=== PATIENT | male | born 1955 | race Caucasian/White ===

== ENCOUNTER 2019-07-14 08:43 | Day surgery (SDC) | payer MEDICAID ==
[2019-07-06 10:56] LABS: CLARITY,URINE CLEAR (Clear); COLOR,URINE YELLOW (Yellow); GLUCOSE, URINE NEGATIVE (Neg); KETONES,URINE NEGATIVE (Neg); LEUKOCYTE ESTERASE ,URINE NEGATIVE (Neg); NITRITES, URINE NEGATIVE (Neg); OCCULT BLOOD,URINE NEGATIVE (Neg); PROTEIN,URINE NEGATIVE (Neg); UROBILINOGEN,URINE 0.2 E.U/dL (0.2-1.0)
[2019-07-06 10:57] LABS: UA COLLECTION TYPE CLN CATCH MIDSTREAM
[2019-07-06 11:01] LABS: BASOPHILS # (AUTO) 0.1 X10'3 (0-0.2); BASOPHILS % (AUTO) 1.2 % (0-1); EOSINOPHILS # (AUTO) 0.3 X10'3 (0-0.9); EOSINOPHILS % (AUTO) 4.1 % (0-6); HEMATOCRIT 39.9 % (42.0-52.0); LYMPHOCYTES # (AUTO) 1.3 X10'3 (1.1-4.8); LYMPHOCYTES % (AUTO) 20.5 % (21-51); MEAN CORPUSCULAR HEMOGLOBIN 35.9 PG (27.0-31.0); MEAN CORPUSCULAR HGB CONC 35.1 g/dL (33.0-36.5); MEAN CORPUSCULAR VOLUME 102.2 FL (78-98); MONOCYTES # (AUTO) 0.7 X10'3 (0-0.9); NEUTROPHILS # (AUTO) 4.1 X10'3 (1.8-7.7); NEUTROPHILS % (AUTO) 63.2 % (42-75); PLATELET COUNT 320 X10'3 (140-440); RED CELL DISTRIBUTION WIDTH 12.7 % (11.5-14.5); WHITE BLOOD COUNT 6.4 X10'3 (4.5-11.0)
[2019-07-06 11:07] LABS: ALBUMIN 4.2 G/DL (3.4-5.0); ANION GAP 7 (8-16); BLOOD UREA NITROGEN 11 MG/DL (7-18); BUN/CREATININE RATIO 10.1 (5.4-32.0); CALCIUM 9.6 MG/DL (8.5-10.1); CHLORIDE 95 MMOL/L (99-107); CREATININE 1.09 MG/DL (0.60-1.10); GLUCOSE 101 MG/DL (70-104); POTASSIUM 4.7 MMOL/L (3.5-5.1); SODIUM 131 MMOL/L (135-145); TOTAL CARBON DIOXIDE 28.6 MMOL/L (24-32); eGFR 69 ML/MIN
[2019-07-06 11:09] LABS: PARTIAL THROMBOPLASTIN TIME 27 SECONDS (22-32)
[2019-07-14] VITALS (8 sets, daily range): BP systolic 95–127; BP diastolic 67–80
[~2019-07-14] VITALS: Ht 175.3 cm; Wt 79.2 kg
[2019-07-14] MEDS ORDERED: cefazolin/dext.iso 2gm/100ml 100 ML IV ONE (09:00)
[2019-07-14] MEDS ORDERED: diphenhydrAMINE 25mg capsule PO PRN (09:00)
[2019-07-14] MEDS ORDERED: LORazepam 0.5 MG tablet PO PRN (09:00)
[2019-07-14] MEDS ORDERED: normal saline 1,000 ML IV SCH (09:00)
[2019-07-14] MEDS ORDERED: LISI40TA4 PO (09:25)
[2019-07-14] MEDS ORDERED: ASPI-611 PO (09:25)
[2019-07-14] MEDS ORDERED: POTA10TA19 PO (09:25)
[2019-07-14] MEDS ORDERED: METO50TA17 PO (09:25)
[2019-07-14] MEDS ORDERED: SPIR25TA5 PO (09:25)
[2019-07-14] MEDS ORDERED: FURO40TA4 PO (09:25)
[2019-07-14 10:08] LABS: ALBUMIN 3.9 G/DL (3.4-5.0); ANION GAP 7 (8-16); BLOOD UREA NITROGEN 13 MG/DL (7-18); BUN/CREATININE RATIO 10.9 (5.4-32.0); CALCIUM 9.3 MG/DL (8.5-10.1); CHLORIDE 95 MMOL/L (99-107); CREATININE 1.19 MG/DL (0.60-1.10); GLUCOSE 108 MG/DL (70-104); SODIUM 130 MMOL/L (135-145); TOTAL CARBON DIOXIDE 27.8 MMOL/L (24-32); eGFR 62 ML/MIN
[2019-07-14 10:10] LABS: POTASSIUM 4.4 MMOL/L (3.5-5.1)
[2019-07-14 10:11] LABS: PARTIAL THROMBOPLASTIN TIME 28 SECONDS (22-32)
[2019-07-14 10:15] LABS: EOSINOPHILS # (AUTO) 0.1 X10'3 (0-0.9); EOSINOPHILS % (AUTO) 3.3 % (0-6); HEMOGLOBIN 13.4 g/dl (14.0-17.9); LYMPHOCYTES # (AUTO) 0.9 X10'3 (1.1-4.8); LYMPHOCYTES % (AUTO) 20.6 % (21-51); MEAN CORPUSCULAR HEMOGLOBIN 35.7 PG (27.0-31.0); MEAN CORPUSCULAR HGB CONC 35.2 g/dL (33.0-36.5); MEAN CORPUSCULAR VOLUME 101.3 FL (78-98); MEAN PLATELET VOLUME 7.5 FL (7.4-10.4); MONOCYTES # (AUTO) 0.6 X10'3 (0-0.9); MONOCYTES % (AUTO) 13.1 % (2-12); NEUTROPHILS # (AUTO) 2.8 X10'3 (1.8-7.7); PLATELET COUNT 278 X10'3 (140-440); RED BLOOD COUNT 3.75 X10'6 (4.70-6.10); RED CELL DISTRIBUTION WIDTH 12.8 % (11.5-14.5); WHITE BLOOD COUNT 4.5 X10'3 (4.5-11.0)
[2019-07-14] MEDS ORDERED: LIDOcaine 1% (10mg/ml)w/preservative injection 20ml MDV ONE (12:03)
[2019-07-14] MEDS ORDERED: iohexol 350MG/ML 100ml bottle IV ONE (12:03)
[2019-07-14] MEDS ORDERED: ceFAZolin 1000mg inj ONE (12:03)
[2019-07-14] MEDS ORDERED: midazolam 2 mg/2 ml injection ONE ×2 (12:03→12:37)
[2019-07-14] MEDS ORDERED: fentaNYL/PF 50MCG/1 ML 2ML syringe ONE ×2 (12:03→12:47)
[2019-07-14] MEDS ORDERED: LIDOcaine 1% W/epiNEPHrine 1:100,000 20ml vial ONE ×2 (12:03→12:35)
[2019-07-14] MEDS ORDERED: OXAZEpam 15mg capsule PO PRN (14:35)
[2019-07-14] MEDS ORDERED: HYDROcodone/acetaminophen 5mg/325mg tablet PO PRN (14:35)
[2019-07-14] MEDS ORDERED: acetaminophen 325mg tablet PO PRN (14:35)
[2019-07-14] MEDS ORDERED: proCHLORperazine 10 MG/2 ml inj IV PRN (14:35)
[2019-07-14] MEDS ORDERED: HYDROcodone/acetaminophen 10/325mg tab PO PRN (14:35)
[2019-07-14] MEDS ORDERED: ondansetron/PF 4mg/2ml inj IV PRN (14:35)
== END 2019-07-14 16:05 | disposition home or self-care (01) ==
LOC: SSTAY O 08:43
PROVIDERS: ATTEND Internal Medicine Interventional Cardiology
DX: R94.39 Abnormal result of other cardiovascular function study (principal); I25.10 Atherosclerotic heart disease of native coronary artery without angina pectoris; I11.0 Hypertensive heart disease with heart failure; I50.9 Heart failure, unspecified; F17.210 Nicotine dependence, cigarettes, uncomplicated; Z79.01 Long term (current) use of anticoagulants; Z79.82 Long term (current) use of aspirin; Z79.899 Other long term (current) drug therapy; Z72.89 Other problems related to lifestyle; Z88.8 Allergy status to other drugs, medicaments and biological substances; I45.89 Other specified conduction disorders
CPT/HCPCS: 33249; 36415; 80048; 81003; 85025; 85610; 85730; 93005; 93458; 99152; 99153; C1721; C1760; C1769; C1895; J0690; J1644; J2001; J2250; J3010; J7030; Q0163; Q9967; A4565; A4620; A6258

== ENCOUNTER 2022-12-08 19:06 | Emergency (ER) | payer MEDICARE, MEDICAID ==
[~2022-12-08] VITALS: Ht 177.8 cm; Wt 77.3 kg
[~2022-12-08 19:06] MED LIST: ASPI-611 PO; FURO40TA4 PO; LISI40TA13 PO; METO50TA17 PO; POTA-192 PO; SPIR25TA5 PO
[2022-12-08 19:33] LABS: BASOPHILS % (AUTO) 0.6 % (0-1); EOSINOPHILS # (AUTO) 0.1 X10'3 (0-0.9); EOSINOPHILS % (AUTO) 1.1 % (0-6); HEMATOCRIT 38.1 % (42.0-52.0); HEMOGLOBIN 13.1 g/dl (14.0-17.9); LYMPHOCYTES # (AUTO) 0.6 X10'3 (1.1-4.8); MEAN CORPUSCULAR HEMOGLOBIN 33.9 PG (27.0-31.0); MEAN CORPUSCULAR HGB CONC 34.3 g/dL (33.0-36.5); MONOCYTES # (AUTO) 0.8 X10'3 (0-0.9); MONOCYTES % (AUTO) 12.3 % (2-12); NEUTROPHILS # (AUTO) 4.9 X10'3 (1.8-7.7); PLATELET COUNT 305 X10'3 (140-440); RED BLOOD COUNT 3.85 X10'6 (4.70-6.10); RED CELL DISTRIBUTION WIDTH 13.4 % (11.5-14.5); WHITE BLOOD COUNT 6.4 X10'3 (4.5-11.0)
[2022-12-08 19:42] LABS: ALANINE AMINOTRANSFERASE 29 U/L (12-78); ALBUMIN/GLOBULIN RATIO 1.3 (1.1-1.5); ALKALINE PHOSPHATASE 69 IU/L (46-116); ANION GAP 10 (8-16); ASPARTATE AMINO TRANSFERASE 41 U/L (10-37); BILIRUBIN,TOTAL 0.4 MG/DL (0.1-1.0); BLOOD UREA NITROGEN 15 MG/DL (7-18); CALCIUM 8.7 MG/DL (8.5-10.1); CHLORIDE 93 MMOL/L (99-107); CREATININE 1.36 MG/DL (0.60-1.10); GLUCOSE 98 MG/DL (70-104); POTASSIUM 4.1 MMOL/L (3.5-5.1); SODIUM 128 MMOL/L (135-145); TOTAL CARBON DIOXIDE 24.8 MMOL/L (24-32); eGFR 53 ML/MIN
[2022-12-08 23:50] VITALS: BP 152/93
== END 2022-12-09 00:07 | disposition home or self-care (01) ==
LOC: ER 19:07
DX: R07.9 Chest pain, unspecified (principal); E87.1 Hypo-osmolality and hyponatremia; I11.9 Hypertensive heart disease without heart failure; F41.9 Anxiety disorder, unspecified; F17.200 Nicotine dependence, unspecified, uncomplicated; Z88.2 Allergy status to sulfonamides; Z79.899 Other long term (current) drug therapy; Z79.82 Long term (current) use of aspirin
CPT/HCPCS: 36415; 80053; 83735; 83880; 84484; 85025; 93005; 99284

== ENCOUNTER 2023-01-26 13:14 | Emergency (ER) | payer MEDICARE, MEDICAID ==
[~2023-01-26] VITALS: Ht 177.8 cm; Wt 78.6 kg
[2023-01-26 13:40] LABS: BASOPHILS # (AUTO) 0.1 X10'3 (0-0.2); BASOPHILS % (AUTO) 0.9 % (0-1); EOSINOPHILS # (AUTO) 0.1 X10'3 (0-0.9); EOSINOPHILS % (AUTO) 1.2 % (0-6); HEMATOCRIT 39.7 % (42.0-52.0); HEMOGLOBIN 13.4 g/dl (14.0-17.9); LYMPHOCYTES # (AUTO) 1.4 X10'3 (1.1-4.8); LYMPHOCYTES % (AUTO) 16.6 % (21-51); MEAN CORPUSCULAR HEMOGLOBIN 32.8 PG (27.0-31.0); MEAN CORPUSCULAR HGB CONC 33.7 g/dL (33.0-36.5); MEAN CORPUSCULAR VOLUME 97.2 FL (78-98); MONOCYTES # (AUTO) 0.6 X10'3 (0-0.9); MONOCYTES % (AUTO) 7.5 % (2-12); NEUTROPHILS # (AUTO) 6.3 X10'3 (1.8-7.7); NEUTROPHILS % (AUTO) 73.8 % (42-75); PLATELET COUNT 315 X10'3 (140-440); RED BLOOD COUNT 4.09 X10'6 (4.70-6.10); RED CELL DISTRIBUTION WIDTH 13.2 % (11.5-14.5); WHITE BLOOD COUNT 8.5 X10'3 (4.5-11.0)
[2023-01-26 13:55] LABS: ALANINE AMINOTRANSFERASE 28 U/L (12-78); ALBUMIN/GLOBULIN RATIO 1.2 (1.1-1.5); ALKALINE PHOSPHATASE 70 IU/L (46-116); ANION GAP 8 (8-16); ASPARTATE AMINO TRANSFERASE 26 U/L (10-37); BILIRUBIN,TOTAL 0.4 MG/DL (0.1-1.0); BLOOD UREA NITROGEN 15 MG/DL (7-18); BUN/CREATININE RATIO 10.8 (10.0-20.0); CALCIUM 8.9 MG/DL (8.5-10.1); CHLORIDE 95 MMOL/L (99-107); CREATININE 1.39 MG/DL (0.60-1.10); GLUCOSE 104 MG/DL (70-104); POTASSIUM 4.1 MMOL/L (3.5-5.1); SODIUM 127 MMOL/L (135-145); TOTAL CARBON DIOXIDE 24.1 MMOL/L (24-32); TOTAL PROTEIN 7.3 G/DL (6.4-8.2); eGFR 51 ML/MIN
[2023-01-26] MEDS ORDERED: normal saline 1000ML IV soln IVB ONE (17:50)
[2023-01-26 19:01] VITALS: BP 155/86
== END 2023-01-26 19:03 | disposition home or self-care (01) ==
LOC: ER 13:14
DX: I11.0 Hypertensive heart disease with heart failure (principal); E87.1 Hypo-osmolality and hyponatremia; F41.9 Anxiety disorder, unspecified; Z88.2 Allergy status to sulfonamides; Z79.899 Other long term (current) drug therapy
CPT/HCPCS: 36415; 71045; 80053; 83880; 84484; 85025; 93005; 99285; J7030

== ENCOUNTER 2023-02-22 19:20 | Emergency (ER) | payer MEDICARE, MEDICAID ==
[~2023-02-22] VITALS: Ht 177.8 cm; Wt 77.3 kg
[2023-02-22 20:06] VITALS: BP 115/85; PULSE 73; O2SAT 97
[2023-02-22 20:42] LABS: BASOPHILS # (AUTO) 0.1 X10'3 (0-0.2); BASOPHILS % (AUTO) 1.2 % (0-1); EOSINOPHILS # (AUTO) 0.1 X10'3 (0-0.9); EOSINOPHILS % (AUTO) 1.6 % (0-6); HEMOGLOBIN 13.4 g/dl (14.0-17.9); LYMPHOCYTES # (AUTO) 1.9 X10'3 (1.1-4.8); LYMPHOCYTES % (AUTO) 24.8 % (21-51); MEAN CORPUSCULAR HEMOGLOBIN 33.2 PG (27.0-31.0); MEAN CORPUSCULAR HGB CONC 34.4 g/dL (33.0-36.5); MEAN CORPUSCULAR VOLUME 96.5 FL (78-98); MEAN PLATELET VOLUME 6.9 FL (7.4-10.4); MONOCYTES # (AUTO) 0.6 X10'3 (0-0.9); MONOCYTES % (AUTO) 8.7 % (2-12); NEUTROPHILS # (AUTO) 4.8 X10'3 (1.8-7.7); NEUTROPHILS % (AUTO) 63.7 % (42-75); PLATELET COUNT 276 X10'3 (140-440); RED BLOOD COUNT 4.04 X10'6 (4.70-6.10); RED CELL DISTRIBUTION WIDTH 13.6 % (11.5-14.5); WHITE BLOOD COUNT 7.5 X10'3 (4.5-11.0)
[2023-02-22 21:01] LABS: ALANINE AMINOTRANSFERASE 27 U/L (12-78); ALBUMIN/GLOBULIN RATIO 1.2 (1.1-1.5); ALKALINE PHOSPHATASE 62 IU/L (46-116); ANION GAP 8 (8-16); ASPARTATE AMINO TRANSFERASE 21 U/L (10-37); BILIRUBIN,TOTAL 0.3 MG/DL (0.1-1.0); BLOOD UREA NITROGEN 17 MG/DL (7-18); BUN/CREATININE RATIO 14.3 (10.0-20.0); CALCIUM 9.7 MG/DL (8.5-10.1); CHLORIDE 98 MMOL/L (99-107); CREATININE 1.19 MG/DL (0.60-1.10); GLUCOSE 100 MG/DL (70-104); POTASSIUM 4.4 MMOL/L (3.5-5.1); SODIUM 131 MMOL/L (135-145); TOTAL CARBON DIOXIDE 24.9 MMOL/L (24-32); TOTAL PROTEIN 7.3 G/DL (6.4-8.2); eGFR 61 ML/MIN
[2023-02-22] MEDS ORDERED: normal saline 1000ml 1,000 ML IV ONE (23:20)
[2023-02-23 00:37] VITALS: RESP 13
[2023-02-23 00:53] VITALS: TEMP 97.4
== END 2023-02-23 00:57 | disposition home or self-care (01) ==
LOC: ER 19:22
DX: T67.8XXA Other effects of heat and light, initial encounter (principal); R00.2 Palpitations; E87.1 Hypo-osmolality and hyponatremia; I11.0 Hypertensive heart disease with heart failure; I50.9 Heart failure, unspecified; Z88.2 Allergy status to sulfonamides; Z79.82 Long term (current) use of aspirin; Z79.899 Other long term (current) drug therapy; X58.XXXA Exposure to other specified factors, initial encounter; Y93.89 Activity, other specified; Y92.89 Other specified places as the place of occurrence of the external cause; Y99.8 Other external cause status
CPT/HCPCS: 36415; 71045; 80053; 83880; 84484; 85025; 93005; 96360; 99285; J7030

== ENCOUNTER 2023-03-01 07:33 | Inpatient (IN) | payer MEDICARE, MEDICAID ==
[~2023-03-01] VITALS: Ht 177.8 cm; Wt 78.2 kg
[2023-03-01] MEDS ORDERED: MAGNESIUM SULFATE 4 MEQ/ML (5gm/10ml) injection ONE (08:00)
[2023-03-01] MEDS ORDERED: heparin 10,000 units/1 ML INJ ONE (08:00)
[2023-03-01] MEDS ORDERED: mannitol 12.5gm/50mL VIAL IV ONE (08:00)
[2023-03-01] MEDS ORDERED: LIDOcaine 2% (20 mg/ml) 5ml cardiac syringe ONE (08:00)
[2023-03-01] MEDS ORDERED: calcium chloride 100 MG/1 ML inj IV ONE (08:00)
[2023-03-01] MEDS ORDERED: heparin 1,000 units/ml 10ml inj ONE (08:00)
[2023-03-01] MEDS ORDERED: methylPREDNISolone sod succ 1000mg vial ONE (08:00)
[2023-03-01] MEDS ORDERED: sodium bicarbonate (8.4%) 1 mEq/ml syringe ONE (08:00)
[2023-03-01] MEDS ORDERED: NORepinephrine 1 mg/ml inj IV ONE (08:00)
[2023-03-01] MEDS ORDERED: albumin (human) 25% 100 ML IV solution IV ONE (08:00)
[2023-03-01] MEDS ORDERED: aminocaproic acid 250 MG/1 ML inj. ONE (08:00)
[2023-03-01 08:24] LABS: ALANINE AMINOTRANSFERASE 26 U/L (12-78); ALBUMIN/GLOBULIN RATIO 1.2 (1.1-1.5); ALKALINE PHOSPHATASE 62 IU/L (46-116); ANION GAP 12 (8-16); ASPARTATE AMINO TRANSFERASE 25 U/L (10-37); BILIRUBIN,TOTAL 0.4 MG/DL (0.1-1.0); BLOOD UREA NITROGEN 17 MG/DL (7-18); BUN/CREATININE RATIO 12.9 (10.0-20.0); CHLORIDE 98 MMOL/L (99-107); CREATININE 1.32 MG/DL (0.60-1.10); GLUCOSE 174 MG/DL (70-104); POTASSIUM 4.4 MMOL/L (3.5-5.1); SODIUM 133 MMOL/L (135-145); TOTAL CARBON DIOXIDE 23.1 MMOL/L (24-32); TOTAL PROTEIN 7.4 G/DL (6.4-8.2); eCRCL 58 ML/MIN; eGFR 54 ML/MIN
[2023-03-01 08:28] LABS: PRO BRAIN NATRIURETIC PEPTIDE 1276 PG/ML (0-125)
[2023-03-01 08:45] LABS: BASOPHILS % (AUTO) 0.8 % (0-1); EOSINOPHILS # (AUTO) 0.1 X10'3 (0-0.9); EOSINOPHILS % (AUTO) 1.9 % (0-6); HEMATOCRIT 42.2 % (42.0-52.0); HEMOGLOBIN 14.2 g/dl (14.0-17.9); LYMPHOCYTES % (AUTO) 22.1 % (21-51); MEAN CORPUSCULAR HEMOGLOBIN 32.6 PG (27.0-31.0); MEAN CORPUSCULAR HGB CONC 33.7 g/dL (33.0-36.5); MEAN CORPUSCULAR VOLUME 96.8 FL (78-98); MEAN PLATELET VOLUME 7.4 FL (7.4-10.4); MONOCYTES # (AUTO) 0.5 X10'3 (0-0.9); MONOCYTES % (AUTO) 10.3 % (2-12); NEUTROPHILS % (AUTO) 64.9 % (42-75); PLATELET COUNT 289 X10'3 (140-440); RED BLOOD COUNT 4.36 X10'6 (4.70-6.10); RED CELL DISTRIBUTION WIDTH 13.7 % (11.5-14.5); WHITE BLOOD COUNT 4.6 X10'3 (4.5-11.0)
--- NOTE | 2023-03-01 09:04 | NUR ---
SPOKE WITH [employer] PRESIDENT WHO CONFIRMED THE PATIENT'S DEVICE DID INDEED GO OFF. DEVICE WAS SUCCESSFUL WITH CONVERTING VT TO SR AND THE DEVICE IS WORKING PROPERLY. RECOMMENDS FOLLOW UP WITH [employer] [facility] [facility] AND HE WILL FAX OVER THE RESULTS.
[2023-03-01] MEDS ORDERED: amiodarone 150mg/dext, iso-os 100 ML IV ONE (12:30)
[2023-03-01] MEDS ORDERED: amiodarone/D5 360MG/200ML BAG 200 ML IV SCH (12:30)
[2023-03-01] MEDS ORDERED: morphine 2 MG/ML inj. syringe IV PRN ×2 (13:15)
[2023-03-01] MEDS: normal saline 1000ml 1,000 ML IV SCH (13:15)
[2023-03-01] MEDS ORDERED: magnesium 2GM in 50ml NS 50 ML IV PRN (13:15)
[2023-03-01] MEDS ORDERED: ondansetron/PF 4mg/2ml inj IV PRN (13:15)
[2023-03-01] MEDS ORDERED: PERFLUTREN PROTEIN-A MICROSPHR (Optison) 0.22 MG/ML 3ML VIAL IV ONE (13:15)
[2023-03-01] MEDS ORDERED: potassium Cl 40MEQ/1/2NS 520ml 520 ML IV PRN (13:15)
[2023-03-01] MEDS ORDERED: magnesium Cl slow-release 64mg tablet PO PRN (13:15)
[2023-03-01] MEDS ORDERED: acetaminophen 325mg tablet PO PRN (13:15)
[2023-03-01] MEDS ORDERED: potassium Cl 20 mEq SR tablet PO PRN ×2 (13:15)
[2023-03-01] MEDS ORDERED: magnesium 4gm in 100ml NS 100 ML IV PRN (13:15)
[2023-03-01] MEDS ORDERED: ATOR20TA66 PO (15:10)
[2023-03-01] MEDS ORDERED: METO-384 PO (15:10)
[2023-03-01] MEDS ORDERED: EMPA10TA PO (15:10)
[2023-03-01] MEDS ORDERED: SILD100T70 PO (15:10)
[2023-03-01] MEDS ORDERED: OMEP40CA21 PO (15:10)
[2023-03-01] MEDS ORDERED: LISI20TA28 PO (15:10)
[2023-03-01] MEDS: K and/or MAG REPLACEMENT MC SCH (20:00)
--- NOTE | 2023-03-01 21:46 | NUR ---
Amiodarone drip completed. MD order to hold the subsequent doses.
[2023-03-02] VITALS (9 sets, daily range): BP systolic 134–169; BP diastolic 77–98; PULSE 65–74; RESP 11–17; TEMP 97.6–98.4; O2SAT 94–99
--- NOTE | 2023-03-02 06:33 | NUR ---
ASSUMED PT CARE. PT SHOWS NO S/S OF ACUTE DISTRESS. BED LOCKED AND LOW. CALL LIGHT IN REACH
--- NOTE | 2023-03-02 06:44 | NUR ---
Note jerad in ED - 03/02/23 at 0645 by LINDA ASSUMED PT CARE. PT SHOWS NO S/S OF ACUTE DISTRESS. BED LOCKED AND LOW. CALL LIGHT IN REACH
[2023-03-02 07:06] LABS: BASOPHILS % (AUTO) 0.5 % (0-1); EOSINOPHILS # (AUTO) 0.1 X10'3 (0-0.9); EOSINOPHILS % (AUTO) 1.5 % (0-6); HEMATOCRIT 43.3 % (42.0-52.0); HEMOGLOBIN 14.7 g/dl (14.0-17.9); LYMPHOCYTES # (AUTO) 1.2 X10'3 (1.1-4.8); LYMPHOCYTES % (AUTO) 17.9 % (21-51); MEAN CORPUSCULAR HEMOGLOBIN 32.9 PG (27.0-31.0); MEAN CORPUSCULAR HGB CONC 33.9 g/dL (33.0-36.5); MEAN CORPUSCULAR VOLUME 96.9 FL (78-98); MONOCYTES # (AUTO) 0.7 X10'3 (0-0.9); MONOCYTES % (AUTO) 9.9 % (2-12); NEUTROPHILS # (AUTO) 4.6 X10'3 (1.8-7.7); NEUTROPHILS % (AUTO) 70.2 % (42-75); PLATELET COUNT 284 X10'3 (140-440); RED BLOOD COUNT 4.47 X10'6 (4.70-6.10); RED CELL DISTRIBUTION WIDTH 13.9 % (11.5-14.5); WHITE BLOOD COUNT 6.6 X10'3 (4.5-11.0)
[2023-03-02] MEDS: K and/or MAG REPLACEMENT MC SCH ×2 (08:00→19:42)
[2023-03-02 08:02] LABS: ALBUMIN 3.9 G/DL (3.4-5.0); ANION GAP 8 (8-16); BLOOD UREA NITROGEN 15 MG/DL (7-18); BUN/CREATININE RATIO 12.3 (10.0-20.0); CALCIUM 8.9 MG/DL (8.5-10.1); CHLORIDE 99 MMOL/L (99-107); CREATININE 1.22 MG/DL (0.60-1.10); GLUCOSE 112 MG/DL (70-104); MAGNESIUM 2.5 MG/DL (1.5-2.4); POTASSIUM 4.7 MMOL/L (3.5-5.1); SODIUM 134 MMOL/L (135-145); TOTAL CARBON DIOXIDE 26.7 MMOL/L (24-32); eCRCL 62 ML/MIN; eGFR 60 ML/MIN
[2023-03-02] MEDS: EMPAGLIFLOZIN 10 MG TABLET PO SCH (08:16)
[2023-03-02] MEDS: atorvastatin 20mg tablet PO SCH (08:17)
[2023-03-02] MEDS: metoprolol succinate 25mg (24-HOUR) SR. Tablet PO SCH (08:17)
[2023-03-02] MEDS: aspirin 81mg, enteric-coated 1 TAB TABLET.DR PO SCH (08:18)
[2023-03-02] MEDS: amiodarone 200mg tablet PO SCH ×2 (11:19→19:42)
[2023-03-02] MEDS ORDERED: midazolam 1 mg/ML 2ml injection ONE (14:48)
[2023-03-02] MEDS ORDERED: LIDOcaine 1% (10mg/ml) 2ml vial ONE (14:48)
[2023-03-02] MEDS ORDERED: verapamil 2.5 mg/ml inj IV ONE (14:48)
[2023-03-02] MEDS ORDERED: nitroGLYCERIN-Tridil 50MG/D5W 250 ML IV ONE (14:48)
[2023-03-02] MEDS ORDERED: iohexol 350MG/ML 100ml bottle IV ONE (14:49)
[2023-03-02] MEDS ORDERED: heparin 1,000unit/ml 10ml vial 10 ML ONE (14:49)
[2023-03-02] MEDS ORDERED: fentaNYL/PF 50MCG/1 ML 2ML syringe ONE (14:49)
--- NOTE | 2023-03-02 19:25 | NUR ---
Problems reprioritized. Patient report given, questions answered & plan of care reviewed with MICHELL MILAN.
[2023-03-03] VITALS (15 sets, daily range): BP systolic 81–158; BP diastolic 45–91; PULSE 62–92; RESP 12–21; TEMP 97.8–98.1; O2SAT 93–98
[2023-03-03 06:11] LABS: ALBUMIN 3.7 G/DL (3.4-5.0); ANION GAP 7 (8-16); BLOOD UREA NITROGEN 22 MG/DL (7-18); BUN/CREATININE RATIO 18.3 (10.0-20.0); CALCIUM 9.6 MG/DL (8.5-10.1); CHLORIDE 98 MMOL/L (99-107); GLUCOSE 110 MG/DL (70-104); MAGNESIUM 2.3 MG/DL (1.5-2.4); POTASSIUM 4.9 MMOL/L (3.5-5.1); SODIUM 134 MMOL/L (135-145); TOTAL CARBON DIOXIDE 28.6 MMOL/L (24-32); eCRCL 63 ML/MIN; eGFR 61 ML/MIN
[2023-03-03 06:20] LABS: BASOPHILS % (AUTO) 0.7 % (0-1); EOSINOPHILS # (AUTO) 0.1 X10'3 (0-0.9); EOSINOPHILS % (AUTO) 2.1 % (0-6); HEMATOCRIT 42.3 % (42.0-52.0); HEMOGLOBIN 14.3 g/dl (14.0-17.9); LYMPHOCYTES # (AUTO) 1.7 X10'3 (1.1-4.8); LYMPHOCYTES % (AUTO) 23.8 % (21-51); MEAN CORPUSCULAR HGB CONC 33.9 g/dL (33.0-36.5); MEAN CORPUSCULAR VOLUME 97.2 FL (78-98); MEAN PLATELET VOLUME 7.2 FL (7.4-10.4); MONOCYTES # (AUTO) 0.7 X10'3 (0-0.9); MONOCYTES % (AUTO) 9.4 % (2-12); NEUTROPHILS # (AUTO) 4.5 X10'3 (1.8-7.7); PLATELET COUNT 271 X10'3 (140-440); RED BLOOD COUNT 4.35 X10'6 (4.70-6.10); RED CELL DISTRIBUTION WIDTH 13.9 % (11.5-14.5)
--- NOTE | 2023-03-03 06:41 | NUR ---
Problems reprioritized. Patient report given, questions answered & plan of care reviewed with Devi
[2023-03-03] MEDS: EMPAGLIFLOZIN 10 MG TABLET PO SCH (08:00)
[2023-03-03] MEDS: K and/or MAG REPLACEMENT MC SCH (08:00)
[2023-03-03] MEDS: amiodarone 200mg tablet PO SCH (09:38)
[2023-03-03] MEDS: aspirin 81mg, enteric-coated 1 TAB TABLET.DR PO SCH (09:39)
[2023-03-03] MEDS: atorvastatin 20mg tablet PO SCH (09:39)
[2023-03-03] MEDS: metoprolol succinate 25mg (24-HOUR) SR. Tablet PO SCH (09:42)
[2023-03-03] MEDS ORDERED: insulin glargine (Lantus) pen - multi-dose SQ PRN ×2 (09:45→18:30)
[2023-03-03] MEDS ORDERED: DEXTROSE 15 GM of carb/4 tabs (each vial/BOTTLE has 4 tablets) PO PRN ×2 (09:45)
[2023-03-03] MEDS ORDERED: MESSAGE TO PHARMACY PO ONE (09:45)
[2023-03-03] MEDS ORDERED: MESSAGE TO PHARMACY IJ ONE (09:45)
[2023-03-03] MEDS ORDERED: insulin Lispro (HumaLOG) vial - multi-dose SQ SCH (09:45)
[2023-03-03] MEDS ORDERED: dextrose 50%-water 50ml dispensing syringe IV PRN ×3 (09:45→18:30)
[2023-03-03] MEDS ORDERED: glucagon, human recombinant 1mg kit SUBCUT PRN (09:45)
[2023-03-03] MEDS ORDERED: Insulin Reg/NS 100units/100mL 100 ML IV SCH ×2 (09:45→18:30)
[2023-03-03] MEDS ORDERED: MALTODEXTRIN/FRUCTOSE 0.68 KCAL/ML LIQUID 296ML BOTTLE PO ONE (09:45)
[2023-03-03] MEDS ORDERED: MESSAGE TO NURSING PO ONE ×5 (09:45→10:00)
[2023-03-03] MEDS: normal saline 1000ml 1,000 ML IV SCH (09:55)
[2023-03-03] MEDS ORDERED: normal saline 1000ml 1,000 ML IV SCH (10:00)
[2023-03-03 11:06] LABS: APTT 27 SECONDS (22-32); PROTHROMBIN TIME 10.3 SECONDS (9.0-12.0)
[2023-03-03 11:40] LABS: ABG BASE EXCESS -0.1 mmol/L (-2.0-2.0); ABG HCO3 23.8 mmol/L (22.0-26.0); ABG OXYGEN SATURATION 95.9 % (94-97); ABG PCO2 (T) 36.1 mmHg (35.0-48.0); ABG PH (T) 7.436 (7.340-7.440); ABG PO2 (T) 76.5 mmHg (75.0-100.0); ALLEN'S TEST POSITIVE; FCOHb 0.4 % (0.0-3.9); FHHb 4.1 % (0.0-5.0); FLOW 0 L/min; FMetHb 0.2 % (0.0-1.5); FO2Hb 95.3 % (94-97); MODE RA; PATIENT TEMPERATURE 36.6; TOTAL HEMOGLOBIN 15.4 G/dl (14.0-17.9)
[2023-03-03] MEDS ORDERED: ceFAZolin 1000mg inj ONE (12:46)
[2023-03-03] MEDS ORDERED: BUPIVAcaine 0.5% inj/PF 30 ML ONE (12:46)
[2023-03-03] MEDS ORDERED: epiNEPHrine 1 mg/ml inj ONE (12:46)
[2023-03-03] MEDS ORDERED: vancomycin 1,000mg inj ONE (12:51)
[2023-03-03] MEDS ORDERED: ringers solution, lacted 1,000 ML IV ONE (13:25)
[2023-03-03] MEDS ORDERED: midazolam 1 mg/ML 2ml injection ONE (13:28)
[2023-03-03] MEDS ORDERED: SUfentanil 50mcg/ml 1ml amp IV ONE ×2 (13:28→14:20)
[2023-03-03] MEDS ORDERED: NORepinephrine 1 mg/ml inj IV ONE ×2 (13:51→14:26)
[2023-03-03] MEDS ORDERED: ondansetron 4mg rapidly disintigrating tab PO PRN (14:00)
--- NOTE | 2023-03-03 14:00 | NUR ---
Pt AOX4, VSS on RA. Pt denies CP, SOB at this time. Pt showered and prepped with CHG wipes prior to going to OR. Pt brushed teeth. Pt placed in clean gown and dirty bedding stripped from bed and new linens placed on bed. Pt in NAD. Girlfriend Susie at bedside. Report given to OR staff.
[2023-03-03] MEDS ORDERED: cefazolin 2gm/D5W 100mL 100 ML IV ONE (14:10)
[2023-03-03] MEDS ORDERED: VANCOMYCIN 1,500MG inj. 1,500 MG in normal saline 500ml IV soln 300 ML IV SCH (14:10)
[2023-03-03] MEDS ORDERED: vancomycin/NS 1 GM ADD-VANTAGE 250 ML IV ONE (14:15)
[2023-03-03] MEDS ORDERED: LIDOcaine 2% (20mg/ml) 5ml vial ONE (14:20)
[2023-03-03] MEDS ORDERED: rocuronium 10mg/ml inj IV ONE ×2 (14:20→14:26)
[2023-03-03] MEDS ORDERED: protamine sulf. 10mg/ml inj. IV ONE (14:26)
[2023-03-03] MEDS ORDERED: aminocaproic acid 250 MG/1 ML inj. ONE (14:26)
[2023-03-03] MEDS ORDERED: DOBUTamine/D5W 500mg/250ml premix IV ONE (14:26)
[2023-03-03] MEDS ORDERED: isoflurane 100ml inhalation liquid IH ONE (14:26)
[2023-03-03] MEDS ORDERED: nitroGLYCERIN in D5W 50mg/250ml (Tridil) infusion IV ONE (14:26)
[2023-03-03 15:21] LABS: ABG BASE EXCESS -4.7 mmol/L (-2.0-2.0); ABG OXYGEN SATURATION 99.9 % (94-97); ABG PCO2 31.6 mmHg (35.0-48.0); ABG PH 7.398 (7.340-7.440); ABG PO2 293.1 mmHg (75.0-100.0); CL (ABG) 97 mmol/L (99-107); FCOHb 0.7 % (0.0-3.9); FHHb 0.1 % (0.0-5.0); FMetHb 0.3 % (0.0-1.5); FO2Hb 98.9 % (94-97); GLUCOSE (ABG) 114 mg/dl (70-104); K (ABG) 3.9 mmol/L (3.5-5.1); TOTAL HEMOGLOBIN 13.1 G/dl (14.0-17.9)
[2023-03-03 15:45] LABS: ACT @ 1.70 U 267 SEC (193-297); ACT @ 2.84 U 371 SEC (260-420); BASELINE ACT 145 SEC (101-148); PATIENT WEIGHT 77.0k KG
[2023-03-03 16:49] LABS: ABG BASE EXCESS -2.4 mmol/L (-2.0-2.0); ABG HCO3 22.7 mmol/L (22.0-26.0); ABG OXYGEN SATURATION 99.4 % (94-97); ABG PCO2 40.6 mmHg (35.0-48.0); ABG PH 7.366 (7.340-7.440); ABG PO2 264.4 mmHg (75.0-100.0); CL (ABG) 97 mmol/L (99-107); FCOHb 0.3 % (0.0-3.9); FHHb 0.6 % (0.0-5.0); FMetHb 0.3 % (0.0-1.5); FO2Hb 98.8 % (94-97); GLUCOSE (ABG) 89 mg/dl (70-104); IONIZED CA (ABG) 0.96 mmol/L (1.10-1.30); K (ABG) 3.7 mmol/L (3.5-5.1)
[2023-03-03] MEDS ORDERED: ipratropium/albuterol 3ml nebule IH PRN (16:55)
[2023-03-03] MEDS ORDERED: etomidate 2mg/ml inj. ONE (17:00)
[2023-03-03 17:03] LABS: ABG BASE EXCESS VENOUS 1.6 mmol/L (-2.0 - 2.0); ABG HCO3 VENOUS 26.8 mmol/L (21.0-28.0); ABG OXYGEN SATURATION VENOUS 83.7 % (75 - 99 %); ABG PCO2 VENOUS 44.8 mmHg (41.0-54.0); ABG PH (VENOUS) 7.394 (7.310-7.450); ABG PO2 VENOUS 48.8 mmHg (25.0-35.0); CL (ABG) 98 mmol/L (99-107); FCOHb VENOUS 0.4 %; FHHb VENOUS 16.2 %; FMetHb VENOUS 0.3 % (0.0 - 0.5); FO2Hb VENOUS 83.1 %; GLUCOSE (ABG) 87 mg/dl (70-104); IONIZED CA (ABG) 1.07 mmol/L (1.10-1.30); TOTAL HEMOGLOBIN 9.9 G/dl (14.0-17.9)
[2023-03-03 17:33] LABS: ABG BASE EXCESS -0.3 mmol/L (-2.0-2.0); ABG HCO3 23.6 mmol/L (22.0-26.0); ABG OXYGEN SATURATION 97.7 % (94-97); ABG PCO2 35.7 mmHg (35.0-48.0); ABG PH 7.438 (7.340-7.440); ABG PO2 180.3 mmHg (75.0-100.0); CL (ABG) 98 mmol/L (99-107); FCOHb 0.4 % (0.0-3.9); FHHb 2.3 % (0.0-5.0); FMetHb 0.3 % (0.0-1.5); GLUCOSE (ABG) 94 mg/dl (70-104); IONIZED CA (ABG) 1.12 mmol/L (1.10-1.30); K (ABG) 4.2 mmol/L (3.5-5.1)
[2023-03-03] MEDS ORDERED: acetaminophen 1,000mg/100ml IV 100 ML IV ONE (17:38)
[2023-03-03 18:22] LABS: ABG BASE EXCESS VENOUS -0.1 mmol/L (-2.0 - 2.0); ABG HCO3 VENOUS 25.2 mmol/L (21.0-28.0); ABG OXYGEN SATURATION VENOUS 74.5 % (75 - 99 %); ABG PCO2 VENOUS 43.7 mmHg (41.0-54.0); ABG PH (VENOUS) 7.379 (7.310-7.450); ABG PO2 VENOUS 41.9 mmHg (25.0-35.0); CL (ABG) 98 mmol/L (99-107); FCOHb VENOUS 0.8 %; FHHb VENOUS 25.2 %; FMetHb VENOUS 0.3 % (0.0 - 0.5); FO2Hb VENOUS 73.7 %; GLUCOSE (ABG) 101 mg/dl (70-104); IONIZED CA (ABG) 1.27 mmol/L (1.10-1.30); K (ABG) 4.2 mmol/L (3.5-5.1); TOTAL HEMOGLOBIN 11.8 G/dl (14.0-17.9)
[2023-03-03 18:25] LABS: ACTIVATED CLOTTING TIME 121 SEC (101-148)
[2023-03-03] MEDS ORDERED: sodium chloride 0.45% 1,000 ML IV SCH (18:30)
[2023-03-03] MEDS ORDERED: bisacodyl 10mg suppository rectal RC PRN (18:30)
[2023-03-03] MEDS ORDERED: magnesium 4gm in 100ml NS 100 ML IV PRN (18:30)
[2023-03-03] MEDS ORDERED: potassium Cl 20 mEq SR tablet PO PRN (18:30)
[2023-03-03] MEDS ORDERED: sodium phosphate inj. 15 MMOL in dextrose 5%-water 250 ML IV PRN (18:30)
[2023-03-03] MEDS ORDERED: ondansetron/PF 4mg/2ml inj IV PRN (18:30)
[2023-03-03] MEDS ORDERED: Neutra Phos packet PO PRN (18:30)
[2023-03-03] MEDS ORDERED: magnesium hydroxide 30ml (MOM) UD suspension PO PRN (18:30)
[2023-03-03] MEDS ORDERED: metoclopramide 5 mg/ml inj IV PRN (18:30)
[2023-03-03] MEDS ORDERED: acetaminophen 325mg tablet PO PRN ×2 (18:30)
[2023-03-03] MEDS ORDERED: potassium Cl 40MEQ/270ML bag 250 ML IV PRN (18:30)
[2023-03-03] MEDS ORDERED: nitroGLYCERIN-Tridil 50MG/D5W 250 ML IV SCH ×2 (18:30→20:19)
[2023-03-03] MEDS ORDERED: sodium phosphate inj. 30 MMOL in dextrose 5%-water 250 ML IV PRN (18:30)
[2023-03-03] MEDS ORDERED: NORepinephrine 8mg/ 250ml NS 250 ML IV PRN (18:30)
[2023-03-03] MEDS ORDERED: potassium Cl 40MEQ/1/2NS 520ml 520 ML IV PRN (18:30)
[2023-03-03] MEDS ORDERED: magnesium 2GM in 50ml NS 50 ML IV PRN (18:30)
[2023-03-03] MEDS ORDERED: morphine 2 MG/ML inj. syringe IV PRN (18:30)
[2023-03-03] MEDS ORDERED: potassium CL 10mEq/100ml bag 100 ML IV PRN (18:30)
[2023-03-03] MEDS ORDERED: niCARDipine-NS 40mg/200ml IVPB 200 ML IV PRN (18:30)
[2023-03-03] MEDS ORDERED: mineral oil 133ml enema RC PRN (18:30)
[2023-03-03] MEDS ORDERED: potassium Cl 20mEq/100mL bag 100 ML IV PRN (18:30)
[2023-03-03] MEDS ORDERED: morphine 4 MG/ML inj SYRINge IV ONE ×2 (18:58→19:43)
[2023-03-03] MEDS ORDERED: albumin (Human) 5% 250ml 250 ML IV ONE ×2 (19:04)
[2023-03-03] MEDS: morphine 4 MG/ML inj SYRINge IV PRN (19:45)
[2023-03-03 19:47] LABS: BASOPHILS # (AUTO) 0.1 X10'3 (0-0.2); BASOPHILS % (AUTO) 0.3 % (0-1); EOSINOPHILS # (AUTO) 0.1 X10'3 (0-0.9); EOSINOPHILS % (AUTO) 0.5 % (0-6); HEMATOCRIT 35.4 % (42.0-52.0); LYMPHOCYTES # (AUTO) 1.8 X10'3 (1.1-4.8); MEAN CORPUSCULAR HEMOGLOBIN 33.3 PG (27.0-31.0); MEAN CORPUSCULAR HGB CONC 33.9 g/dL (33.0-36.5); MEAN CORPUSCULAR VOLUME 98.2 FL (78-98); MEAN PLATELET VOLUME 7.4 FL (7.4-10.4); MONOCYTES # (AUTO) 0.8 X10'3 (0-0.9); MONOCYTES % (AUTO) 5.1 % (2-12); NEUTROPHILS # (AUTO) 12.5 X10'3 (1.8-7.7); NEUTROPHILS % (AUTO) 82.1 % (42-75); PLATELET COUNT 201 X10'3 (140-440); WHITE BLOOD COUNT 15.2 X10'3 (4.5-11.0)
[2023-03-03 19:48] LABS: ABG BASE EXCESS -4.1 mmol/L (-2.0-2.0); ABG HCO3 21.3 mmol/L (22.0-26.0); ABG OXYGEN SATURATION 97.5 % (94-97); ABG PCO2 (T) 38.7 mmHg (35.0-48.0); ABG PH (T) 7.354 (7.340-7.440); FCOHb 0.3 % (0.0-3.9); FHHb 2.5 % (0.0-5.0); FMetHb 0.3 % (0.0-1.5); FO2Hb 96.9 % (94-97); MODE SIMV; PEEP 5 cm H2O; RESPIRATORY RATE 12 b/min; TIDAL VOLUME 500 mL; TOTAL HEMOGLOBIN 13.1 G/dl (14.0-17.9)
[2023-03-03 19:59] LABS: ALANINE AMINOTRANSFERASE 19 U/L (12-78); ALBUMIN 3.5 G/DL (3.4-5.0); ALBUMIN/GLOBULIN RATIO 1.8 (1.1-1.5); ALKALINE PHOSPHATASE 37 IU/L (46-116); ANION GAP 12 (8-16); APTT 26 SECONDS (22-32); BILIRUBIN,TOTAL 1.1 MG/DL (0.1-1.0); BLOOD UREA NITROGEN 14 MG/DL (7-18); BUN/CREATININE RATIO 14.4 (10.0-20.0); CALCIUM 8.7 MG/DL (8.5-10.1); CHLORIDE 101 MMOL/L (99-107); CREATININE 0.97 MG/DL (0.60-1.10); GLUCOSE 191 MG/DL (70-104); INR 1.1 INR; MAGNESIUM 2.6 MG/DL (1.5-2.4); PROTHROMBIN TIME 12.2 SECONDS (9.0-12.0); SODIUM 136 MMOL/L (135-145); TOTAL CARBON DIOXIDE 23.1 MMOL/L (24-32); TOTAL PROTEIN 5.5 G/DL (6.4-8.2); eCRCL 78 ML/MIN; eGFR 78 ML/MIN
[2023-03-03] MEDS ORDERED: mupirocin 2% ointment 22GM NS SCH ×2 (20:00)
[2023-03-03] MEDS: sennosides/docusate sodium tablet PO SCH (20:00)
[2023-03-03 20:08] LABS: ASPARTATE AMINO TRANSFERASE 31 U/L (10-37); PHOSPHORUS 3.5 MG/DL (2.3-4.5); POTASSIUM 3.9 MMOL/L (3.5-5.1)
[2023-03-03] MEDS: atorvastatin 10mg tablet PO SCH (21:00)
[2023-03-03] MEDS ORDERED: insulin glargine (Lantus) pen - multi-dose SQ SCH (21:00)
[2023-03-03] MEDS: vancomycin/NS 1 GM ADD-VANTAGE 250 ML IV SCH (22:13)
[2023-03-03] MEDS: albumin (Human) 5% 250ml 250 ML IV PRN ×2 (22:15→23:06)
--- NOTE | 2023-03-03 22:35 | NUR ---
Call in to Dr. Joy to report high CO/CI results. Orders noted
[2023-03-04] VITALS (29 sets, daily range): BP systolic 89–155; BP diastolic 41–91; PULSE 76–97; RESP 10–24; O2SAT 92–100
[2023-03-04] MEDS: ceFAZolin/D5W- 1GM premix 50 ML IV SCH ×3 (00:13→17:21)
[2023-03-04 02:32] LABS: BASOPHILS % (AUTO) 0.1 % (0-1); EOSINOPHILS % (AUTO) 0 % (0-6); HEMATOCRIT 28.3 % (42.0-52.0); HEMOGLOBIN 9.6 g/dl (14.0-17.9); LYMPHOCYTES # (AUTO) 0.2 X10'3 (1.1-4.8); LYMPHOCYTES % (AUTO) 1.9 % (21-51); MEAN CORPUSCULAR HEMOGLOBIN 33.1 PG (27.0-31.0); MEAN CORPUSCULAR HGB CONC 33.9 g/dL (33.0-36.5); MEAN CORPUSCULAR VOLUME 97.8 FL (78-98); MEAN PLATELET VOLUME 7.2 FL (7.4-10.4); MONOCYTES # (AUTO) 0.3 X10'3 (0-0.9); MONOCYTES % (AUTO) 3.5 % (2-12); NEUTROPHILS # (AUTO) 8.7 X10'3 (1.8-7.7); NEUTROPHILS % (AUTO) 94.5 % (42-75); PLATELET COUNT 157 X10'3 (140-440); RED BLOOD COUNT 2.89 X10'6 (4.70-6.10); RED CELL DISTRIBUTION WIDTH 13.8 % (11.5-14.5); WHITE BLOOD COUNT 9.2 X10'3 (4.5-11.0)
[2023-03-04 02:46] LABS: ALANINE AMINOTRANSFERASE 15 U/L (12-78); ALBUMIN 3.7 G/DL (3.4-5.0); ALBUMIN/GLOBULIN RATIO 2.2 (1.1-1.5); ALKALINE PHOSPHATASE 26 IU/L (46-116); ANION GAP 15 (8-16); ASPARTATE AMINO TRANSFERASE 20 U/L (10-37); BILIRUBIN,TOTAL 0.6 MG/DL (0.1-1.0); BLOOD UREA NITROGEN 14 MG/DL (7-18); BUN/CREATININE RATIO 11.1 (10.0-20.0); CALCIUM 8.2 MG/DL (8.5-10.1); CHLORIDE 105 MMOL/L (99-107); CREATININE 1.26 MG/DL (0.60-1.10); GLUCOSE 145 MG/DL (70-104); PHOSPHORUS 3.3 MG/DL (2.3-4.5); POTASSIUM 3.9 MMOL/L (3.5-5.1); SODIUM 140 MMOL/L (135-145); TOTAL CARBON DIOXIDE 20.4 MMOL/L (24-32); TOTAL PROTEIN 5.4 G/DL (6.4-8.2); eCRCL 60 ML/MIN; eGFR 57 ML/MIN
[2023-03-04 03:27] LABS: ABG BASE EXCESS -1.7 mmol/L (-2.0-2.0); ABG HCO3 22.9 mmol/L (22.0-26.0); ABG PCO2 (T) 38.2 mmHg (35.0-48.0); ABG PH (T) 7.395 (7.340-7.440); FCOHb 0.3 % (0.0-3.9); FMetHb 0.3 % (0.0-1.5); FO2Hb 95.4 % (94-97); MODE spont; PEEP 5 cm H2O; TOTAL HEMOGLOBIN 10.4 G/dl (14.0-17.9)
[2023-03-04] MEDS: albumin (Human) 5% 250ml 250 ML IV PRN (04:28)
[2023-03-04] MEDS ORDERED: albumin (Human) 5% 250ml 250 ML IV ONE (05:20)
[2023-03-04] MEDS: morphine 4 MG/ML inj SYRINge IV PRN (05:30)
[2023-03-04] MEDS ORDERED: LORazepam 2 mg/ml vial IV ONE (06:00)
[2023-03-04] MEDS ORDERED: famotidine 20mg tablet PO ONE (06:00)
--- NOTE | 2023-03-04 06:30 | NUR ---
Patient in room CICU 2013. I have received report from Julia GALARZA and had the opportunity to ask questions and assume patient care.
--- NOTE | 2023-03-04 07:30 | NUR ---
MD Visit Dr Joy to see pt. BP remains labile and MD aware. MD said to remove art line as able.
[2023-03-04] MEDS: vancomycin/NS 1 GM ADD-VANTAGE 250 ML IV SCH ×2 (07:46→21:08)
[2023-03-04] MEDS: sennosides/docusate sodium tablet PO SCH ×2 (07:47→21:07)
[2023-03-04] MEDS: metoprolol tartrate 12.5mg (1/2 tablet) PO SCH ×2 (07:47→21:07)
[2023-03-04] MEDS: aspirin 81mg tab.chew PO SCH (07:47)
[2023-03-04] MEDS: mupirocin 2% nasal ointment 1gm UD NS SCH ×2 (07:47→21:07)
[2023-03-04] MEDS ORDERED: Insulin Reg/NS 100units/100mL 100 ML IV SCH (09:45)
[2023-03-04] MEDS: HYDROcodone/acetaminophen 10/325mg tab PO PRN ×2 (10:35→17:21)
--- NOTE | 2023-03-04 11:07 | NUR ---
Nutrition consult: Per EMR pt extubated early this morning s/p CABG x 4. Pt would benefit from post CABG nutrition therapy education as appropriate. Pending documentation of PO intake post-op however per EMR pt with 100% PO intake on heart healthy diet prior to OR. Will continue to follow. Addendum: 03/04/23 at [address] Amended: Links added.
--- NOTE | 2023-03-04 12:00 | NUR ---
Pacer interrogation: Pts AICD was interrogated by Bay murray. See his report.
[2023-03-04] MEDS ORDERED: dextrose 50%-water 50ml dispensing syringe IV PRN ×2 (15:00)
[2023-03-04] MEDS ORDERED: insulin Lispro (HumaLOG) vial - multi-dose SQ SCH (15:00)
[2023-03-04] MEDS ORDERED: glucagon, human recombinant 1mg kit SUBCUT PRN (15:00)
[2023-03-04] MEDS ORDERED: DEXTROSE 15 GM of carb/4 tabs (each vial/BOTTLE has 4 tablets) PO PRN ×2 (15:00)
--- NOTE | 2023-03-04 16:30 | NUR ---
Shift note: Out of Bed Pt was out of bed with PT at about 1300 until about 1615. Also attempted commode for BM w/out results. Then back to bed with min assist x 1 RN. Pt denied dizziness or pain with standing or moving. Pt had typical chest tube dump with standing initially. Still c/o pain at left chest/incision.
--- NOTE | 2023-03-04 17:39 | NUR ---
fam to see pt again after work. Pt doing well.
--- NOTE | 2023-03-04 18:25 | NUR ---
Problems reprioritized. Patient report given, questions answered & plan of care reviewed with Julia GALARZA.
--- NOTE | 2023-03-04 21:00 | NUR ---
glucometer reading 180. no humalog per nighttime replacement protocol. No lantus at this time as it was DC'd when ins. drip was DC'd
[2023-03-04] MEDS: atorvastatin 10mg tablet PO SCH (21:07)
[2023-03-05] VITALS (21 sets, daily range): BP systolic 114–150; BP diastolic 72–95; PULSE 73–110; RESP 10–20; TEMP 97.2–97.3; O2SAT 89–98
[2023-03-05] MEDS: ceFAZolin/D5W- 1GM premix 50 ML IV SCH ×2 (00:21→08:27)
[2023-03-05] MEDS: HYDROcodone/acetaminophen 10/325mg tab PO PRN ×2 (05:31→09:37)
--- NOTE | 2023-03-05 06:46 | NUR ---
Patient in room CICU 2013. I have received report from ninfa GALARZA and had the opportunity to ask questions and assume patient care.
[2023-03-05] MEDS ORDERED: furosemide 40mg/4ml inj IV ONE (07:10)
[2023-03-05 07:48] LABS: BASOPHILS % (AUTO) 0.1 % (0-1); EOSINOPHILS % (AUTO) 0 % (0-6); HEMATOCRIT 26.6 % (42.0-52.0); HEMOGLOBIN 8.9 g/dl (14.0-17.9); LYMPHOCYTES # (AUTO) 0.8 X10'3 (1.1-4.8); LYMPHOCYTES % (AUTO) 6.9 % (21-51); MEAN CORPUSCULAR HEMOGLOBIN 32.6 PG (27.0-31.0); MEAN CORPUSCULAR HGB CONC 33.4 g/dL (33.0-36.5); MEAN CORPUSCULAR VOLUME 97.6 FL (78-98); MEAN PLATELET VOLUME 7.7 FL (7.4-10.4); MONOCYTES # (AUTO) 0.9 X10'3 (0-0.9); MONOCYTES % (AUTO) 7.2 % (2-12); NEUTROPHILS # (AUTO) 10.4 X10'3 (1.8-7.7); NEUTROPHILS % (AUTO) 85.8 % (42-75); PLATELET COUNT 153 X10'3 (140-440); RED BLOOD COUNT 2.72 X10'6 (4.70-6.10); RED CELL DISTRIBUTION WIDTH 14.1 % (11.5-14.5); WHITE BLOOD COUNT 12.1 X10'3 (4.5-11.0)
[2023-03-05] MEDS ORDERED: potassium Cl 20 mEq SR tablet PO PRN ×2 (08:00)
[2023-03-05] MEDS ORDERED: potassium Cl 20mEq/100mL bag 100 ML IV PRN (08:00)
[2023-03-05] MEDS ORDERED: potassium Cl 40MEQ/270ML bag 250 ML IV PRN (08:00)
[2023-03-05] MEDS ORDERED: potassium Cl 40MEQ/1/2NS 520ml 520 ML IV PRN (08:00)
[2023-03-05] MEDS ORDERED: magnesium 2GM in 50ml NS 50 ML IV PRN (08:00)
[2023-03-05] MEDS ORDERED: potassium CL 10mEq/100ml bag 100 ML IV PRN (08:00)
[2023-03-05] MEDS ORDERED: magnesium 4gm in 100ml NS 100 ML IV PRN (08:00)
[2023-03-05 08:07] LABS: ALBUMIN 3.7 G/DL (3.4-5.0); ANION GAP 8 (8-16); BLOOD UREA NITROGEN 18 MG/DL (7-18); BUN/CREATININE RATIO 18.9 (10.0-20.0); CALCIUM 8.7 MG/DL (8.5-10.1); CHLORIDE 102 MMOL/L (99-107); CHOL/HDL RATIO 1.9 (0.00-4.99); CHOLESTEROL 87 MG/DL (0-200); CREATININE 0.95 MG/DL (0.60-1.10); GLUCOSE 139 MG/DL (70-104); HDL CHOLESTEROL 45 MG/DL (35-60); LDL CHOLESTEROL 28 MG/DL (50-100); MAGNESIUM 2.2 MG/DL (1.5-2.4); PHOSPHORUS 3.5 MG/DL (2.3-4.5); POTASSIUM 4.6 MMOL/L (3.5-5.1); SODIUM 138 MMOL/L (135-145); TOTAL CARBON DIOXIDE 27.8 MMOL/L (24-32); TRIGLYCERIDES 44 MG/DL (20-135); eCRCL 80 ML/MIN; eGFR 80 ML/MIN
[2023-03-05] MEDS ORDERED: potassium Cl 40MEQ/270ML bag 270 ML IV PRN (08:07)
[2023-03-05] MEDS ORDERED: metoprolol tartrate 12.5mg (1/2 tablet) PO ONE (08:20)
[2023-03-05] MEDS: magnesium Cl slow-release 64mg tablet PO SCH ×2 (08:27→20:14)
[2023-03-05] MEDS: sennosides/docusate sodium tablet PO SCH ×2 (08:27→20:13)
[2023-03-05] MEDS: aspirin 81mg tab.chew PO SCH (08:28)
[2023-03-05] MEDS: pantoprazole 40mg Tablet.DR PO SCH (08:28)
[2023-03-05] MEDS: metoprolol tartrate 12.5mg (1/2 tablet) PO SCH (08:30)
--- NOTE | 2023-03-05 14:12 | NUR ---
Nutrition consult: Pt admit for ventricular fibrillation resulting in AICD defibrillation. Currently POD # 2 s/p CABG x 4. Pt seen at bedside for written and verbal post CABG nutrition therapy education. Pt verbalized understanding and denied questions at this time. Pt endorses a good appetite which is evident with documented average 94% PO intake since admit. Pt states he's getting full from meals though does agree to a Michael shake BID to assist with wound healing, to be sent pending physician approval in EMR. Pt denies food allergies, difficulty feeding self with incision site, or difficulty chewing/swallowing. LBM 8/9 per EMR. Pt receiving routine bowel care and has additional PRN bowel care available. Pt provided with RD contact information and encouraged to reach out if needed. Will continue to follow. Recommendations: 1) Continue NCS diet 2) Jayess Michael shake BIDLD to assist with wound healing, pending physician approval in EMR 3) Routine bowel care 4) Scaled weight this admit; subsequent weekly scaled weights Addendum: 03/05/23 at [address] Amended: Links added.
--- NOTE | 2023-03-05 14:40 | NUR ---
glass catheter dcd at this time, patient tolerated well.Urinal at bedside.
--- NOTE | 2023-03-05 17:15 | NUR ---
Problems reprioritized. Patient report given, questions answered & plan of care reviewed with Gia GALARZA. Pt is good spirits. at side, Pt orientated to room. Call light in reach.
--- NOTE | 2023-03-05 18:30 | NUR ---
Problems reprioritized. Patient report given, questions answered & plan of care reviewed with Fely HASSAN. Pt up in chair eating dinner, Call light in reach. Addendum: 03/05/23 at 1831 by Barbra Munroe RN Amended: Links added.
--- NOTE | 2023-03-05 20:00 | NUR ---
tiller man documentation: I have reviewed and agree with all interventions, assessments performed and documented by Fely Malone LVN .
--- NOTE | 2023-03-05 20:10 | NUR ---
VEHICLE MONITOR TECHNICIAN documentation: I have reviewed and agree with all interventions, assessments performed and documented by FAISAL BANKS LVN.
[2023-03-05] MEDS: potassium Cl 20 mEq SR tablet PO SCH (20:14)
[2023-03-05] MEDS: metoprolol tartrate 25mg tablet PO SCH (20:18)
[2023-03-05] MEDS: furosemide 40 MG/4 ML oral solution UD cup PO SCH (20:21)
[2023-03-05] MEDS: atorvastatin 10mg tablet PO SCH (22:22)
[2023-03-06] VITALS (11 sets, daily range): BP systolic 98–144; BP diastolic 54–87; PULSE 65–97; RESP 14–18; TEMP 97.8–98.5; O2SAT 95–98
[2023-03-06] MEDS ORDERED: amiodarone 150mg/dext, iso-os 100 ML IV ONE (02:05)
[2023-03-06] MEDS: amiodarone/D5 360MG/200ML BAG 200 ML IV SCH ×2 (03:08→09:11)
--- NOTE | 2023-03-06 06:12 | NUR ---
Patient in room PCU 3011. I have received report from Fely HASSAN and had the opportunity to ask questions and assume patient care.Pt remains in Afib. HR 97. Ammio Gtt at 1mg/hr. Pt sleeping, call light in reach. Addendum: 03/06/23 at 0618 by Barbra Munroe RN Amended: Links added.
[2023-03-06 06:32] LABS: BASOPHILS % (AUTO) 0.1 % (0-1); EOSINOPHILS % (AUTO) 0.1 % (0-6); HEMATOCRIT 30.2 % (42.0-52.0); LYMPHOCYTES # (AUTO) 1.5 X10'3 (1.1-4.8); LYMPHOCYTES % (AUTO) 12.6 % (21-51); MEAN CORPUSCULAR HEMOGLOBIN 32.2 PG (27.0-31.0); MEAN CORPUSCULAR VOLUME 97.5 FL (78-98); MEAN PLATELET VOLUME 8.1 FL (7.4-10.4); NEUTROPHILS # (AUTO) 9.5 X10'3 (1.8-7.7); NEUTROPHILS % (AUTO) 79.2 % (42-75); PLATELET COUNT 179 X10'3 (140-440); RED BLOOD COUNT 3.09 X10'6 (4.70-6.10); RED CELL DISTRIBUTION WIDTH 14.1 % (11.5-14.5)
[2023-03-06 06:37] LABS: ALBUMIN 3.6 G/DL (3.4-5.0); ANION GAP 7 (8-16); BLOOD UREA NITROGEN 21 MG/DL (7-18); BUN/CREATININE RATIO 22.6 (10.0-20.0); CALCIUM 8.9 MG/DL (8.5-10.1); CHLORIDE 98 MMOL/L (99-107); CREATININE 0.93 MG/DL (0.60-1.10); GLUCOSE 120 MG/DL (70-104); POTASSIUM 3.9 MMOL/L (3.5-5.1); SODIUM 135 MMOL/L (135-145); TOTAL CARBON DIOXIDE 29.6 MMOL/L (24-32); eCRCL 82 ML/MIN; eGFR 82 ML/MIN
[2023-03-06] MEDS ORDERED: magnesium 2GM in 50ml NS 50 ML IV ONE (07:55)
[2023-03-06] MEDS: aspirin 81mg tab.chew PO SCH (08:06)
[2023-03-06] MEDS: pantoprazole 40mg Tablet.DR PO SCH (08:08)
[2023-03-06] MEDS: magnesium Cl slow-release 64mg tablet PO SCH ×2 (08:08→21:06)
[2023-03-06] MEDS: metoprolol tartrate 25mg tablet PO SCH (08:08)
[2023-03-06] MEDS: potassium Cl 20 mEq SR tablet PO SCH ×2 (08:09→21:08)
[2023-03-06] MEDS: sennosides/docusate sodium tablet PO SCH ×2 (08:09→20:00)
[2023-03-06] MEDS: furosemide 40 MG/4 ML oral solution UD cup PO SCH ×2 (08:12→21:08)
[2023-03-06] MEDS ORDERED: potassium CL 10mEq/100ml bag 100 ML IV SCH (08:20)
--- NOTE | 2023-03-06 08:30 | NUR ---
[id number] Dr Joy contacted regarding Pt heart Rhythm afib, AICD pacer spikes and pt statement that he was going to , He asked that i notify Filiberto LOUIS. Oscar LOUIS notified, new orders received. Filiberto requested I notify Dr Hodge. Dr Hodge informed, New orders received.
[2023-03-06] MEDS ORDERED: oxyCODONE/APAP 5-325mg tablet PO PRN (08:40)
[2023-03-06] MEDS: HYDROcodone/acetaminophen 10/325mg tab PO PRN ×2 (08:58→17:41)
[2023-03-06] MEDS: sotalol HCl 40mg (1/2 tablet) PO SCH ×2 (10:40→21:07)
--- NOTE | 2023-03-06 18:20 | NUR ---
Problems reprioritized. Patient report given, questions answered & plan of care reviewed with Fely HASSAN. Pt eating dinner, No distress, Call light in reach. Pt heart in SR. Addendum: 03/06/23 at 1821 by Barbra Munroe RN Amended: Links added.
[2023-03-06] MEDS: enoxaparin 40mg/0.4ml syringe SUBCUT SCH (21:06)
[2023-03-06] MEDS: atorvastatin 10mg tablet PO SCH (21:08)
[2023-03-07] VITALS (9 sets, daily range): BP systolic 114–136; BP diastolic 71–87; PULSE 77–94; RESP 15–21; TEMP 97.5–98.5; O2SAT 95–99
--- NOTE | 2023-03-07 06:58 | NUR ---
Patient in room PCU 3011. I have received report from Fely HASSAN and had the opportunity to ask questions and assume patient care.
--- NOTE | 2023-03-07 07:17 | NUR ---
This RN has reviewed and agrees w/the AUTOMOTIVE GLASS TECHNICIAN's physical assessment of this patient.
[2023-03-07] MEDS: pantoprazole 40mg Tablet.DR PO SCH (07:52)
[2023-03-07] MEDS: magnesium Cl slow-release 64mg tablet PO SCH ×2 (07:54→19:38)
[2023-03-07] MEDS: sotalol HCl 40mg (1/2 tablet) PO SCH (07:54)
[2023-03-07] MEDS: aspirin 81mg tab.chew PO SCH (07:54)
[2023-03-07] MEDS: potassium Cl 20 mEq SR tablet PO SCH ×2 (07:54→19:38)
[2023-03-07] MEDS: enoxaparin 40mg/0.4ml syringe SUBCUT SCH ×2 (07:55→19:43)
[2023-03-07] MEDS: furosemide 40 MG/4 ML oral solution UD cup PO SCH ×2 (07:59→19:42)
[2023-03-07] MEDS: sennosides/docusate sodium tablet PO SCH ×2 (08:00→19:39)
[2023-03-07 08:04] LABS: BASOPHILS % (AUTO) 0.2 % (0-1); EOSINOPHILS # (AUTO) 0.1 X10'3 (0-0.9); EOSINOPHILS % (AUTO) 1.4 % (0-6); HEMATOCRIT 30.1 % (42.0-52.0); HEMOGLOBIN 10.2 g/dl (14.0-17.9); LYMPHOCYTES # (AUTO) 1.3 X10'3 (1.1-4.8); LYMPHOCYTES % (AUTO) 14.4 % (21-51); MEAN CORPUSCULAR VOLUME 97.1 FL (78-98); MEAN PLATELET VOLUME 7.7 FL (7.4-10.4); MONOCYTES # (AUTO) 0.8 X10'3 (0-0.9); NEUTROPHILS # (AUTO) 6.7 X10'3 (1.8-7.7); PLATELET COUNT 214 X10'3 (140-440); WHITE BLOOD COUNT 8.9 X10'3 (4.5-11.0)
[2023-03-07] MEDS: HYDROcodone/acetaminophen 10/325mg tab PO PRN ×2 (08:11→19:40)
[2023-03-07 09:07] LABS: ANION GAP 9 (8-16); BLOOD UREA NITROGEN 18 MG/DL (7-18); BUN/CREATININE RATIO 22.2 (10.0-20.0); CHLORIDE 99 MMOL/L (99-107); CREATININE 0.81 MG/DL (0.60-1.10); GLUCOSE 105 MG/DL (70-104); POTASSIUM 3.9 MMOL/L (3.5-5.1); SODIUM 135 MMOL/L (135-145); TOTAL CARBON DIOXIDE 26.9 MMOL/L (24-32)
[2023-03-07 09:08] LABS: ALBUMIN 3.4 G/DL (3.4-5.0); CALCIUM 8.8 MG/DL (8.5-10.1); eCRCL 94 ML/MIN; eGFR > 90 ML/MIN
[2023-03-07] MEDS: JUVEN Shake w/Arg/Glut/Ca2+Bmb (Juven 19.3gm) pkt 240ml PO SCH ×2 (12:30→18:09)
--- NOTE | 2023-03-07 18:42 | NUR ---
Problems reprioritized. Patient report given, questions answered & plan of care reviewed with Catian GALARZA.
[2023-03-07] MEDS: sotalol 80mg tablet PO SCH (19:39)
[2023-03-07] MEDS: atorvastatin 10mg tablet PO SCH (21:22)
[2023-03-08] VITALS (10 sets, daily range): BP systolic 89–124; BP diastolic 54–79; PULSE 78–104; RESP 15–20; TEMP 97.7–98.9; O2SAT 93–99
[2023-03-08] MEDS: HYDROcodone/acetaminophen 10/325mg tab PO PRN ×2 (05:42→17:30)
--- NOTE | 2023-03-08 06:15 | NUR ---
Problems reprioritized. Patient report given, questions answered & plan of care reviewed with Ricky
--- NOTE | 2023-03-08 06:16 | NUR ---
Patient in room PCU 3011. I have received report from Catina GALARZA and had the opportunity to ask questions and assume patient care.
[2023-03-08 06:23] LABS: BASOPHILS % (AUTO) 0.3 % (0-1); EOSINOPHILS # (AUTO) 0.2 X10'3 (0-0.9); EOSINOPHILS % (AUTO) 2.2 % (0-6); HEMATOCRIT 30.7 % (42.0-52.0); HEMOGLOBIN 10.5 g/dl (14.0-17.9); LYMPHOCYTES # (AUTO) 1.5 X10'3 (1.1-4.8); LYMPHOCYTES % (AUTO) 20.6 % (21-51); MEAN CORPUSCULAR HGB CONC 34.3 g/dL (33.0-36.5); MEAN CORPUSCULAR VOLUME 96.1 FL (78-98); MEAN PLATELET VOLUME 7.5 FL (7.4-10.4); MONOCYTES # (AUTO) 0.7 X10'3 (0-0.9); MONOCYTES % (AUTO) 9.7 % (2-12); NEUTROPHILS # (AUTO) 4.9 X10'3 (1.8-7.7); NEUTROPHILS % (AUTO) 67.2 % (42-75); PLATELET COUNT 273 X10'3 (140-440); RED BLOOD COUNT 3.19 X10'6 (4.70-6.10); RED CELL DISTRIBUTION WIDTH 13.6 % (11.5-14.5); WHITE BLOOD COUNT 7.3 X10'3 (4.5-11.0)
[2023-03-08 06:37] LABS: ALBUMIN 3.2 G/DL (3.4-5.0); ANION GAP 7 (8-16); BLOOD UREA NITROGEN 18 MG/DL (7-18); BUN/CREATININE RATIO 18.9 (10.0-20.0); CHLORIDE 99 MMOL/L (99-107); CREATININE 0.95 MG/DL (0.60-1.10); GLUCOSE 111 MG/DL (70-104); SODIUM 133 MMOL/L (135-145); TOTAL CARBON DIOXIDE 27.3 MMOL/L (24-32); eCRCL 80 ML/MIN; eGFR 80 ML/MIN
[2023-03-08] MEDS: pantoprazole 40mg Tablet.DR PO SCH (07:35)
[2023-03-08] MEDS: aspirin 81mg tab.chew PO SCH (07:35)
[2023-03-08] MEDS: furosemide 40 MG/4 ML oral solution UD cup PO SCH ×2 (07:36→20:35)
[2023-03-08] MEDS: magnesium Cl slow-release 64mg tablet PO SCH ×2 (07:36→20:34)
[2023-03-08] MEDS: potassium Cl 20 mEq SR tablet PO SCH ×2 (07:36→20:35)
[2023-03-08] MEDS: sennosides/docusate sodium tablet PO SCH ×2 (07:37→20:34)
[2023-03-08] MEDS: enoxaparin 40mg/0.4ml syringe SUBCUT SCH ×2 (07:38→20:37)
[2023-03-08] MEDS: sotalol 80mg tablet PO SCH ×2 (07:44→20:34)
[2023-03-08] MEDS ORDERED: HYDR-3972 PO (07:53)
[2023-03-08] MEDS ORDERED: SOTA80TA73 PO (07:53)
[2023-03-08] MEDS: JUVEN Shake w/Arg/Glut/Ca2+Bmb (Juven 19.3gm) pkt 240ml PO SCH ×2 (13:12→17:51)
--- NOTE | 2023-03-08 18:21 | NUR ---
Problems reprioritized. Patient report given, questions answered & plan of care reviewed with Catina GALARZA.
[2023-03-08] MEDS: atorvastatin 10mg tablet PO SCH (20:34)
[2023-03-09 02:00] VITALS: BP 105/68; PULSE 76; RESP 13; TEMP 98.3; O2SAT 98
--- NOTE | 2023-03-09 06:45 | NUR ---
Problems reprioritized. Patient report given, questions answered & plan of care reviewed with Mart
--- NOTE | 2023-03-09 06:49 | NUR ---
Patient in room PCU 3011. I have received report from Catina GALARZA and had the opportunity to ask questions and assume patient care.
[2023-03-09 07:00] VITALS: BP 134/77; PULSE 80; RESP 16; TEMP 97.8; O2SAT 96
[2023-03-09 07:55] LABS: ALBUMIN 3.2 G/DL (3.4-5.0); ANION GAP 7 (8-16); BLOOD UREA NITROGEN 19 MG/DL (7-18); BUN/CREATININE RATIO 18.1 (10.0-20.0); CHLORIDE 99 MMOL/L (99-107); CREATININE 1.05 MG/DL (0.60-1.10); GLUCOSE 110 MG/DL (70-104); POTASSIUM 4.2 MMOL/L (3.5-5.1); SODIUM 135 MMOL/L (135-145); TOTAL CARBON DIOXIDE 28.7 MMOL/L (24-32); eCRCL 72 ML/MIN; eGFR 71 ML/MIN
[2023-03-09 08:00] VITALS: RESP 16; O2SAT 96
[2023-03-09] MEDS: sennosides/docusate sodium tablet PO SCH (08:20)
[2023-03-09] MEDS: sotalol 80mg tablet PO SCH (08:21)
[2023-03-09] MEDS: aspirin 81mg tab.chew PO SCH (08:21)
[2023-03-09] MEDS: pantoprazole 40mg Tablet.DR PO SCH (08:22)
[2023-03-09] MEDS: potassium Cl 20 mEq SR tablet PO SCH (08:23)
[2023-03-09] MEDS: enoxaparin 40mg/0.4ml syringe SUBCUT SCH (08:23)
[2023-03-09] MEDS: magnesium Cl slow-release 64mg tablet PO SCH (08:23)
[2023-03-09] MEDS: furosemide 40 MG/4 ML oral solution UD cup PO SCH (08:24)
[2023-03-09 08:29] VITALS: RESP 21
[2023-03-09] MEDS: HYDROcodone/acetaminophen 10/325mg tab PO PRN (08:29)
[2023-03-09 09:10] LABS: BASOPHILS % (AUTO) 0.5 % (0-1); EOSINOPHILS # (AUTO) 0.2 X10'3 (0-0.9); EOSINOPHILS % (AUTO) 2.5 % (0-6); HEMATOCRIT 30.5 % (42.0-52.0); HEMOGLOBIN 10.3 g/dl (14.0-17.9); LYMPHOCYTES # (AUTO) 1.2 X10'3 (1.1-4.8); LYMPHOCYTES % (AUTO) 14.2 % (21-51); MEAN CORPUSCULAR HEMOGLOBIN 32.9 PG (27.0-31.0); MEAN CORPUSCULAR HGB CONC 33.9 g/dL (33.0-36.5); MEAN CORPUSCULAR VOLUME 97.2 FL (78-98); MEAN PLATELET VOLUME 7.2 FL (7.4-10.4); MONOCYTES % (AUTO) 11.7 % (2-12); NEUTROPHILS # (AUTO) 5.9 X10'3 (1.8-7.7); NEUTROPHILS % (AUTO) 71.1 % (42-75); PLATELET COUNT 335 X10'3 (140-440); RED BLOOD COUNT 3.14 X10'6 (4.70-6.10); RED CELL DISTRIBUTION WIDTH 13.9 % (11.5-14.5); WHITE BLOOD COUNT 8.3 X10'3 (4.5-11.0)
--- NOTE | 2023-03-09 11:19 | NUR ---
Pt was DC'd as per 's orders. Pt was unhooked from all tele and IV. Pt and spouse were educated at bedside and all questions were answered. Pt gathered all belongings and took with them. Pt will follow up for appointments with PCP and cardiology, pt will get meds at their pharmacy. I wheeled pt down to lobby in wheelchair and pt left in a private vehicle destined for home.
== END 2023-03-09 11:10 | disposition home health service (06) | DRG 233 ==
LOC: ER 07:34 → ED HOLD 13:19 → EDBEDREQ 03-02 13:01 → PCU 3S 03-02 13:42 → CICU 2S 03-03 19:33 → PCU 3S 03-05 17:25
PROVIDERS: ADMIT Internal Medicine; ATTEND Internal Medicine
PROC: 4B02XTZ Measurement of Cardiac Defibrillator, External Approach (ICD-10-PCS; 2023-03-01)
PROC: 4A023N7 Measurement of Cardiac Sampling and Pressure, Left Heart, Percutaneous Approach (ICD-10-PCS; principal; 2023-03-02)
PROC: B2111ZZ Fluoroscopy of Multiple Coronary Arteries using Low Osmolar Contrast (ICD-10-PCS; 2023-03-02)
PROC: 02100Z9 Bypass Coronary Artery, One Artery from Left Internal Mammary, Open Approach (ICD-10-PCS; 2023-03-03)
PROC: 021209W Bypass Coronary Artery, Three Arteries from Aorta with Autologous Venous Tissue, Open Approach (ICD-10-PCS; 2023-03-03)
PROC: 06BQ4ZZ Excision of Left Saphenous Vein, Percutaneous Endoscopic Approach (ICD-10-PCS; 2023-03-03)
PROC: 5A1221Z Performance of Cardiac Output, Continuous (ICD-10-PCS; 2023-03-03)
PROC: B24BZZ4 Ultrasonography of Heart with Aorta, Transesophageal (ICD-10-PCS; 2023-03-03)
DX: I25.10 Atherosclerotic heart disease of native coronary artery without angina pectoris (principal); I21.A1 Myocardial infarction type 2; I49.01 Ventricular fibrillation; I50.23 Acute on chronic systolic (congestive) heart failure; E87.1 Hypo-osmolality and hyponatremia; I47.20 Ventricular tachycardia, unspecified; I13.0 Hypertensive heart and chronic kidney disease with heart failure and stage 1 through stage 4 chronic kidney disease, or unspecified chronic kidney disease; I97.190 Other postprocedural cardiac functional disturbances following cardiac surgery; N18.9 Chronic kidney disease, unspecified; F41.9 Anxiety disorder, unspecified; K21.9 Gastro-esophageal reflux disease without esophagitis; E78.5 Hyperlipidemia, unspecified; I25.5 Ischemic cardiomyopathy; I45.10 Unspecified right bundle-branch block; Z87.891 Personal history of nicotine dependence; Z95.810 Presence of automatic (implantable) cardiac defibrillator; Z88.2 Allergy status to sulfonamides; Z79.899 Other long term (current) drug therapy; Z79.82 Long term (current) use of aspirin; I48.0 Paroxysmal atrial fibrillation; Y83.2 Surgical operation with anastomosis, bypass or graft as the cause of abnormal reaction of the patient, or of later complication, without mention of misadventure at the time of the procedure; Y92.230 Patient room in hospital as the place of occurrence of the external cause
CPT/HCPCS: 36415; 36600; 71045; 71046; 80048; 80053; 80061; 82330; 82435; 82803; 82947; 82948; 83036; 83735; 83880; 84100; 84132; 84295; 84484; 85018; 85025; 85347; 85610; 85730; 86885; 86900; 86901; 86920; 87081; 93005; 93306; 93312; 93325; 93454; 93880; 93970; 94002; 94003; 94010; 94668; 94760; 97110; 97116; 97161; 97530; 99152; 99285; A4615; A4618; A6213; A6258; A6449; A7000; A7048; C1751; C1894; G0378; J0131; J0171; J0282; J0690; J1250; J1644; J1650; J1815; J1940; J2150; J2250; J2270; J2720; J2930; J3010; J3370; J3475; J3480; J3490; J7030; J7040; J7050; J7120; P9045; P9047; Q9967; S0020

== ENCOUNTER 2023-04-28 12:40 | Emergency (ER) | payer MEDICARE, MEDICAID ==
[~2023-04-28] VITALS: Ht 172.7 cm; Wt 90.0 kg
[~2023-04-28 12:40] MED LIST changes: +ATOR20TA66 PO; +CLOP75TA34 PO; +EMPA10TA PO; -FURO40TA4 PO; +HYDR-3972 PO; -LISI40TA13 PO; -METO50TA17 PO; -POTA-192 PO; +SILD100T70 PO; +SOTA80TA73 PO; -SPIR25TA5 PO
[2023-04-28 12:59] VITALS: BP 142/89; PULSE 79; RESP 18; TEMP 98; O2SAT 98
[2023-04-28 13:49] LABS: BASOPHILS # (AUTO) 0.1 X10'3 (0-0.2); BASOPHILS % (AUTO) 0.8 % (0-1); EOSINOPHILS # (AUTO) 0.4 X10'3 (0-0.9); EOSINOPHILS % (AUTO) 4.8 % (0-6); HEMATOCRIT 39.6 % (42.0-52.0); HEMOGLOBIN 12.9 g/dl (14.0-17.9); LYMPHOCYTES # (AUTO) 1.4 X10'3 (1.1-4.8); LYMPHOCYTES % (AUTO) 18.5 % (21-51); MEAN CORPUSCULAR HEMOGLOBIN 30.4 PG (27.0-31.0); MEAN CORPUSCULAR HGB CONC 32.6 g/dL (33.0-36.5); MEAN PLATELET VOLUME 7.5 FL (7.4-10.4); MONOCYTES # (AUTO) 0.7 X10'3 (0-0.9); MONOCYTES % (AUTO) 9.5 % (2-12); NEUTROPHILS % (AUTO) 66.4 % (42-75); PLATELET COUNT 332 X10'3 (140-440); RED BLOOD COUNT 4.26 X10'6 (4.70-6.10); RED CELL DISTRIBUTION WIDTH 15.4 % (11.5-14.5); WHITE BLOOD COUNT 7.5 X10'3 (4.5-11.0)
[2023-04-28 14:00] LABS: APTT 28 SECONDS (22-32); PROTHROMBIN TIME 10.7 SECONDS (9.0-12.0)
[2023-04-28 14:05] LABS: ALANINE AMINOTRANSFERASE 21 U/L (12-78); ALBUMIN 3.9 G/DL (3.4-5.0); ALBUMIN/GLOBULIN RATIO 1.1 (1.1-1.5); ALKALINE PHOSPHATASE 87 IU/L (46-116); ANION GAP 9 (8-16); ASPARTATE AMINO TRANSFERASE 25 U/L (10-37); BILIRUBIN,TOTAL 0.4 MG/DL (0.1-1.0); BLOOD UREA NITROGEN 16 MG/DL (7-18); BUN/CREATININE RATIO 16.3 (10.0-20.0); CALCIUM 9.4 MG/DL (8.5-10.1); CHLORIDE 99 MMOL/L (99-107); CREATININE 0.98 MG/DL (0.60-1.10); GLUCOSE 99 MG/DL (70-104); POTASSIUM 4.2 MMOL/L (3.5-5.1); SODIUM 132 MMOL/L (135-145); TOTAL PROTEIN 7.3 G/DL (6.4-8.2); eCRCL 73 ML/MIN; eGFR 77 ML/MIN
[2023-04-28 14:12] LABS: PRO BRAIN NATRIURETIC PEPTIDE 924 PG/ML (0-125)
== END 2023-04-28 19:41 | disposition home or self-care (01) ==
LOC: ER 12:40
DX: I63.89 Other cerebral infarction (principal)
CPT/HCPCS: 36415; 70450; 71045; 80053; 83880; 84484; 85025; 85610; 85730; 93005; 99285

== ENCOUNTER 2024-09-09 01:41 | Emergency (ER) | payer MEDICARE, MEDICAID ==
[~2024-09-09] VITALS: Ht 175.3 cm; Wt 89.5 kg
[2024-09-09 01:59] VITALS: TEMP 98.2
[2024-09-09 02:56] VITALS: BP 141/33; PULSE 73; RESP 18; O2SAT 98
[2024-09-09] MEDS: dexamethasone sod phosphate 10mg/ml inj IM STA (02:59)
== END 2024-09-09 03:05 | disposition home or self-care (01) ==
LOC: ER 01:46
DX: J20.9 Acute bronchitis, unspecified (principal); J11.1 Influenza due to unidentified influenza virus with other respiratory manifestations; I11.0 Hypertensive heart disease with heart failure; I50.9 Heart failure, unspecified; F41.9 Anxiety disorder, unspecified; Z88.2 Allergy status to sulfonamides; Z79.82 Long term (current) use of aspirin; Z79.899 Other long term (current) drug therapy; Z95.0 Presence of cardiac pacemaker; Z72.89 Other problems related to lifestyle
CPT/HCPCS: 71045; 93005; 96372; 99283; J1100

== ENCOUNTER 2025-01-10 09:59 | Inpatient (IN) | payer MEDICARE, MEDICAID ==
[~2025-01-10] VITALS: Ht 177.8 cm; Wt 86.0 kg
--- NOTE | 2025-01-10 10:19 | ELECTROCARDIOGRAPH REPORT ---
[facility] Test Date: 2025-01-10 Test Time: 10:14:46 Pat Name: JULIA PEREZ Department: EMERGENCY ROOM Room: [place] [address] Gender: M [employer]: SCOOBY : 1955 Requested By: CHANTEL VYAS Order Number: [id number] Reading MD: Dr. Lance Edgar Measurements Intervals [place] Rate: 85 P: 62 SC: 200 QRS: 70 QRSD: 143 T: 92 QT: 390 QTc: 464 Interpretive Statements Sinus rhythm Right bundle branch block Anterolateral infarct, age indeterminate Abnormal T, consider ischemia, lateral leads Electronically Signed On 01-19-2025 18:43:[address] Lance Edgar Please click the below link to view image of tracing.
--- NOTE | 2025-01-10 10:24 | Physician Documentation ---
History of Present Illness ~ Chief Complaint: Chest Pain Stated Complaint: DIZZINESS IRREG HEART RATE Time Seen by MD: 12:58 OK to notify your PCP?: No Primary Medical Doctor: Dr. Stephy Feliz HPI 59-YEAR-OLD MALE PRESENTS TO THE ED WITH A COMPLAINT OF HIS HEART WORKING TOO HARD. HE HAS A HISTORY OF BYPASS PROXIMALLY THREE YEARS AGO. HE HAS NOTICED INCREASED SHORTNESS OF BREATH OVER THE LAST WEEK. WITH ANY CHEST PAIN NAUSEA VOMITING OR DIAPHORESIS 59-year-old male, history of bypass/ICD, who presents with an abnormal feeling in his heart. He tells me that for the past couple of days he has felt like he is having some irregular heartbeats. He states that it is intermittent, and seems worse when he is out in the heat. 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 It has been extremely hot this week. He states that it is not pain, but is more like an abnormal heartbeat or several abnormal beats. Yesterday while he was working in the heat he also felt like his left hand was cramping and he felt slightly dizzy. He denies any specific chest pressure. No syncope. No current dizziness. No abdominal pain, nausea/vomiting. No other acute concerns. He is currently asymptomatic. Medication Reconciliation Allergies: Coded Allergies: Sulfa (Sulfonamide Antibiotics) (Unverified Allergy, Unknown, 04/28/23) Scheduled Aspirin (Aspir 81), 1 TAB PO DAILY, (Reported) Atorvastatin Calcium (Atorvastatin Calcium), 40 MG PO DAILY Clopidogrel Bisulfate (Clopidogrel), 75 MG PO DAILY Empagliflozin (Jardiance), 1 TAB PO DAILY, (Reported) Sotalol Hcl* (Betapace*), 80 MG PO Q12H Scheduled PRN Hydrocodone Bit/Acetaminophen (Hydrocodon-Acetaminophn 10-325 tablet), 1 TAB PO Q4H PRN for MODERATE PAIN 4-6 Sildenafil Citrate (Sildenafil Citrate), 1 TAB PO DAILY PRN for sexual activity, (Reported) Past Medical History Past Medical History: Arrhythmia, Congestive Heart Failure, Hypertension, Anxiety Past Surgical History: pacemaker, other Alcohol Use: Occasionally Drug Use: none Lives In: Home Review of Systems Constitutional: Denies: fever Cardiovascular: Reports: palpitations; Denies: chest pain, syncope Gastrointestinal: Denies: abdominal pain Physical Exam Vital Signs: Temperature: 98.5, Source: Temporal, Heart Rate: 98, Respiratory Rate: 19, BP: 131/83, Pulse Oximetry: 95, Weight: 86.050 Oxygen Flow Rate: 0 Physical Exam General: This is a pleasant and overall healthy-appearing middle-aged man, at bedside HEENT: Atraumatic, oropharynx is moist Heart: Regular rate and rhythm, normal-appearing peripheral perfusion. No murmur Lungs: Clear breath sounds bilateral, normal work of breathing, normal oxygen saturation on room air Abdomen: Soft, nondistended, nontender all quadrants Extremities: Warm and well-perfused, no edema, no posterior calf or thigh tenderness Neuro: Alert and oriented, no focal deficits Psychiatric: Calm and cooperative with exam Progress Results/Orders Results/Orders Orders - ALEXIS VYAS MD Monitor (01/10/25 10:02) Saline Lock (01/10/25 10:02) Oxygen (01/10/25 10:02) Chest,Single View (01/10/25 10:48) Page Hospitalist (01/10/25 14:23) Completed Orders - ALEXIS VYAS MD Cbc/Diff (01/10/25 10:02) BMP (01/10/25 10:02) PBNP (01/10/25 10:02) Electrocardiogram (01/10/25 10:02) Hs Troponin I W Calculations (01/10/25 10:02) Hs Troponin I W Calculations (01/10/25 12:02) Hs Troponin I W Calculations (01/10/25 13:02) Chest,Single View (01/10/25 10:48) Aspirin 81mg Chew Tablet (Aspirin 81mg C (01/10/25 14:15) Hgb A1c (01/10/25 10:18) MG (01/10/25 10:18) PHOS (01/10/25 10:18) TSH (01/10/25 10:18) Medications Received in ER Medications (Trade) Dose Ordered Sig/Ildefonso Route PRN Reason Start Time Stop Time Status Last Admin Dose Admin (aspirin 81MG chew tablet) 324 mg ONCE ONCE PO 01/10/25 14:15 01/10/25 14:16 DC 01/10/25 14:24 324 MG Vital Signs 01/10/25 01/10/25 01/10/25 10:18 13:51 14:36 Temp 98.5 Pulse 98 69 Resp 19 18 22 B/P (MAP) 131/83 148/80 (102) Pulse Ox 95 98 O2 Flow Rate 0 Laboratory Tests Test 01/10/25 10:18 01/10/25 12:41 01/10/25 13:51 White Blood Count 6.6 Red Blood Count 4.53 L Hemoglobin 15.1 Hematocrit 44.2 Mean Corpuscular Volume 97.7 Mean Corpuscular Hemoglobin 33.4 H Mean Corpuscular Hemoglobin Concent 34.2 Red Cell Distribution Width 13.5 Platelet Count 237 Mean Platelet Volume 7.3 L Neutrophils (%) (Auto) 76.3 H Lymphocytes (%) (Auto) 16.7 L Monocytes (%) (Auto) 4.9 Eosinophils (%) (Auto) 1.4 Basophils (%) (Auto) 0.7 Neutrophils # (Auto) 5.0 Lymphocytes # (Auto) 1.1 Monocytes # (Auto) 0.3 Eosinophils # (Auto) 0.1 Basophils # (Auto) 0.0 CBC Comment Sodium Level 139 Potassium Level 4.4 Chloride Level 102 Carbon Dioxide Level 25.0 Anion Gap 12 Blood Urea Nitrogen 20 H Creatinine 1.26 H Estimated GFR/1.73 m2 57 BUN/Creatinine Ratio 15.9 Glucose Level 167 H Hemoglobin A1c 5.7 Calcium Level 9.4 Phosphorus Level 3.4 Magnesium Level 2.2 Troponin I High Sensitivity 57 220 *H 271 *H Pro-B-Type Natriuretic Peptide 379 H Albumin 4.0 Thyroid Stimulating Hormone (TSH) 3.24 Chemistry Comments Troponin I High Sens Percent Delta 285 23 Troponin I Hi Sens Absolute Change 163 51 EKG/XRAY/CT/US/VASC/MRI EKG : Additional Comment I personally interpreted the EKG and this shows: Sinus rhythm, right bundle branch block, QTC 464 Chest X-Ray : Additional Comments I personally reviewed the x-ray, and it shows: No mediastinal widening, no foc al consolidation or pulmonary edema. Post surgical changes and ICD Consults/PCP Consults/PCP : Additional Comment Consult: 2:25 p.m.: I spoke to Dr. Arizmendi, cardiology. He recommends admission, aspirin, no heparin, likely stress test. Consult: I spoke to the internal medicine service, for admission in the hospital Heart Score: Heart Score Response (Comments) Value History Moderate Suspicious 1 EKG Repolarization Disturb 1 Age >65 2 Risk Factors >3 or Hx ASHD 2 Troponin 1-2 x's Normal limit 1 Total 7 Medical Decision Making Heart Score: 7 Differential Dx:Considerations: Include: angina, aortic dissection, chest wall pain, cholelithiasis, CHF, costochondritis, myocardial infarction, pulmonary embolus Additional Information Differential includes dehydration, electrolyte derangement, heat related symptoms, dysrhythmia Assessment The patient presents with vague chest related symptoms, with minimal symptoms at the time of my evaluation. However, his workup does show a slightly elevated troponin. The exact significance of this is unclear, whether it is related to over exertion in the heat, or a primary cardiac related issue or ACS. He was given aspirin. Cardiology was consulted as above. He will be admitted to the medicine service for further workup and treatment. Departure Impression: Primary Impression: Chest pain Additional Impression: Elevated troponin Referrals: NO PRIMARY CARE PROVIDER (PCP) Signature Scribe Signature: c Attestation: Scribed for Alexis Vyas MD by Maria Boo NP . 01/10/25 18:26 MARIA ANDRADE NP Jan 10, 2025 10:24 ALEXIS VYAS MD Jan 10, 2025 13:16
[2025-01-10 10:26] LABS: BASOPHILS % (AUTO) 0.7 % (0-1); EOSINOPHILS # (AUTO) 0.1 X10'3 (0-0.9); EOSINOPHILS % (AUTO) 1.4 % (0-6); HEMATOCRIT 44.2 % (42.0-52.0); HEMOGLOBIN 15.1 g/dl (14.0-17.9); LYMPHOCYTES # (AUTO) 1.1 X10'3 (1.1-4.8); LYMPHOCYTES % (AUTO) 16.7 % (21-51); MEAN CORPUSCULAR HEMOGLOBIN 33.4 PG (27.0-31.0); MEAN CORPUSCULAR HGB CONC 34.2 g/dL (33.0-36.5); MEAN CORPUSCULAR VOLUME 97.7 FL (78-98); MEAN PLATELET VOLUME 7.3 FL (7.4-10.4); MONOCYTES # (AUTO) 0.3 X10'3 (0-0.9); MONOCYTES % (AUTO) 4.9 % (2-12); NEUTROPHILS % (AUTO) 76.3 % (42-75); PLATELET COUNT 237 X10'3 (140-440); RED BLOOD COUNT 4.53 X10'6 (4.70-6.10); RED CELL DISTRIBUTION WIDTH 13.5 % (11.5-14.5); WHITE BLOOD COUNT 6.6 X10'3 (4.5-11.0)
[2025-01-10 10:57] LABS: ANION GAP 12 (8-16); BLOOD UREA NITROGEN 20 MG/DL (7-18); BUN/CREATININE RATIO 15.9 (10.0-20.0); CALCIUM 9.4 MG/DL (8.5-10.1); CHLORIDE 102 MMOL/L (99-107); CREATININE 1.26 MG/DL (0.60-1.10); GLUCOSE 167 MG/DL (70-104); POTASSIUM 4.4 MMOL/L (3.5-5.1); SODIUM 139 MMOL/L (135-145); eCRCL 59 ML/MIN; eGFR 57 ML/MIN
--- NOTE | 2025-01-10 11:25 | RADIOLOGY REPORT ---
CHEST RADIOGRAPH Indication: CP Technique: Single frontal view of the chest was obtained COMPARISON: DI CHEST,SINGLE VIEW on DOS: 09/09/24, DI CHEST,SINGLE VIEW on DOS: 04/28/23, DI CHEST,SING LE VIEW on DOS: 04/22/23 FINDINGS: Lines and Tubes: Left chest wall AICD. Median sternotomy. Lungs: Clear Pleura: No effusion. No pneumothorax. Cardiomediastinal contours: Unremarkable Bones: Unremarkable IMPRESSION: No acute disease.
[2025-01-10 11:54] LABS: PRO BRAIN NATRIURETIC PEPTIDE 379 PG/ML (0-125)
[2025-01-10] MEDS: aspirin 81mg tab.chew PO ONE (14:24)
--- NOTE | 2025-01-10 14:48 | HISTORY AND PHYSICAL ---
History & Physical Providers to Chief complaint, chest pain ~ History of Present Illness Reason for Admit\Complaint: As above History of Present Illness This is a 59-YEAR-OLD MALE, with history of multiple medical problems including hypertension, status post CABG x4 vessels, pacemaker status, history of atrial fibrillation, history of CVA, ex-smoker quit three years ago, history of PVD carotids, dyslipidemia, on Eliquis at home, history of CHF ejection fraction 55% 2022, in mild exacerbation, chronic pain syndrome on home opioids, presented today to emergency department chief complaint chest pain; in addition patient PRESENTS TO THE ED WITH A COMPLAINT OF HIS HEART WORKING TOO HARD. HE HAS A HISTORY OF BYPASS PROXIMALLY THREE YEARS AGO. HE HAS NOTICED INCREASED SHORTNESS OF BREATH OVER THE LAST WEEK. WITH ANY CHEST PAIN NAUSEA VOMITING OR DIAPHORESIS, in addition patient has history of bypass/ICD, who presents with an abnormal feeling in his heart. He tells me that for the past couple of days he has felt like he is having some irregular heartbeats. He states that it is intermittent, and seems worse when he is out in the heat. 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 It has been extremely hot this week. He states that it is not pain, but is more like an abnormal heartbeat or several abnormal beats. Yesterday while he was working in the heat he also felt like his left hand was cramping and he felt slightly dizzy. He denies any specific chest pressure. No syncope. No current dizziness. No abdominal pain, nausea/vomiting. No other acute concerns. He is currently asymptomatic. Emergency department he was evaluated by physician and after consultation with rotary envelope machine operator, decision was made to admit patient for further evaluation and treatment. No additional complaint or concern. Allergies: Coded Allergies: Sulfa (Sulfonamide Antibiotics) (Unverified Allergy, Unknown, 04/28/23) Active prescriptions I reviewed reconciled Home Medications Home Medications Active Atorvastatin Calcium 20 Mg Tablet 40 Mg PO DAILY 30 Days Clopidogrel (Clopidogrel Bisulfate) 75 Mg Tablet 75 Mg PO DAILY 30 Days Do not stop medication unless instructed by prescriber. Hydrocodon-Acetaminophn 10-325 tablet (Acetaminophen/Hydrocodone Bitart) 10mg- 325mg Tablet 1 Tab PO Q4H PRN Betapace* (Sotalol HCl) 80 Mg Tablet 80 Mg PO Q12H Reported Sildenafil Citrate 100 Mg Tablet 1 Tab PO DAILY PRN Jardiance (Empagliflozin) 10 Mg Tablet 1 Tab PO DAILY Aspir 81 (Aspirin) 81 Mg Tablet. 1 Tab PO DAILY Past Medical History Past Medical History As in HPI Past Surgical History Surgical History Comment As in HPI Family History Family History: Family history was reviewed; no changes noted. Past Social History Social History Comment Deny illicit drug abuse tobacco alcohol use live with the family good social support Health Maintenance Health Maintenance Noncontributory ROS ROS Constitutional : no fever , no chills, or weakness. No diaphoresis. Allergic/Immunologic, no lymphadenopathy, no hives, no skin eruptions. Eyes, no recent visual changes, no eye pain, no photophobia. Ears, nose, mouth, throat, no sore throat, no nosebleed, no ear pain. Cardiovascular, no palpitations, skipped beats, positive for chest pain, no peripheral edema, Respiratory, no dyspnea, orthopnea, cough, hemoptysis, chest wall pain. Gastrointestinal, no abdominal pain, nausea, vomiting, constipation or diarrhea. : no dysuria, hematuria, pelvic pain, urethral d/c. Endocrine, no polyuria, polydipsia, recent unintentional weight gain or loss. Hematologic/Lymphatic, no petechiae, no enlarged lymph nodes, no bone pain. Integumentary, no rash, no skin lesions, Musculoskeletal, no muscle aches, or pain, no muscle cramps, no recent change in gait Neurological, no dizziness, no headache, no syncope, no paresthesia. Psychiatric, no delusions, visual hallucinations, or hearing hallucinations. ROS - in rest is as in HPI. Exam Vitals: Vital Signs Date Time Temp Pulse Resp B/P (MAP) Pulse Ox O2 Delivery O2 Flow Rate FiO2 01/10/25 14:36 69 22 148/80 (102) 98 01/10/25 10:18 98.5 0 Vital signs, stable ,afebrile. Pulse Oximetry reflects adequate oxygenation. BMI is twenty-seven, weight 86 kg General: well developed, well nourished. Awake , alert, and oriented x4, resting comfortably in the bed, in no acute distress . Skin: Warm, dry, no pallor, no rash or petechiae. HEENT: Atraumatic, normocephalic, EOMI, anicteric sclera B; pink conjunctiva; PERRLA, normal oropharynx, moist oral and nasal mucosa. Tympanic membrane , nose , throat clear. Neck: Trachea midline. Supple, full range of motion, no JVD, bruit , hepatojugular reflex , lymphadenopathy or masses, or other lesions Cardiac: Regular rhythm, regular rate no murmurs, rubs, or gallops. Normal S1 and S2, no S3 noticed. PMI is normal. Respiratory: Equal breath sounds bilaterally, no tachypnea; lungs clear to auscultation bilaterally, no wheezing ,rub or rales, or crackles. Chest wall is symmetric and without deformity. No signs of trauma. Chest wall is nontender. No signs of respiratory distress. Resonance is normal upon percussion bilaterally. Gastrointestinal: Abdomen symmetric, non-distended, soft, non-tender, normal bowel sounds x4 quadrant, normoactive, no hepatosplenomegaly , no masses , no bruit, no flank pain bilaterally. No voluntary guarding, rebound, or rigidity. No tenderness to percussion. No pulsatile masses. Equal femoral pulses. No Moyer's sign or McBurney point tenderness. Back; no CVA tenderness bilaterally, no deformities. Neck and back are without deformity as well. No tenderness noted on palpation of the spinous processes. Spinous processes are midline. Cervical, thoracic, and lumbar paraspinal muscles are not tender and are without spasm. : normal external genitalia, without lesions, swelling, masses or tenderness. Musculoskeletal: Extremities, normal range of motion, non-tender, muscle strength 5/5 x 4. Negative Homans signs bilaterally on lower extremity. Distal pulses full symmetrical, no clubbing, cyanosis , edema. Neurological: Speech is clear, alert, and oriented x 4. No motor or sensory deficit, deep tendon reflexes normal, cerebellar intact. Cranial nerves II-XII intact. Psych: Alert and or appropriate, normal affect. Vascular: Good distal pulses, which are equal x4; capillary refill less than 2 seconds. Lymphatic, no lymphadenopathy. Diagnostic Data Last Recorded Lab Results: 01/10/25 1018 01/10/25 1018 Advance Care Planning Advanced Care plannin - 30 Minutes Additional Plan Assessment Chest pain precordial Non ST-elevation [place] Hypertension poor control Atrial fibrillation controlled ventricular rate, pacemaker status History of CABG x4 vessels CHF mild exacerbation preserved ejection fraction 55% 2022 Chronic pain syndrome on home opioids Additional comorbidities, dyslipidemia, PVD carotids, history of CVA Plan Serial troponin EKG Continue aspirin Plavix, no heparin infusion per rotary envelope machine operator Dr. Arizmendi, who is on-call today Additional lab work pending Patient rotary envelope machine operator is Dr. Feliz Echocardiography pending We will consider Jaida test Reconciled home medications DVT gastropathy prophylaxis addressed Sepsis Screening Reassessment Date: Jan 10, 2025 Date of Service: Jan 10, 2025 Billing Provider: JONATHAN PLATT MD Common Visit Codes: 81813-[id number] INP/OBS CARE (HIGH) Secondary Visit Codes: 42117-[id number] CARE PLAN 30 MINUTES JONATHAN PLATT MD Jan 10, 2025 14:48
[2025-01-10] MEDS ORDERED: magnesium hydroxide 30ml (MOM) UD suspension PO PRN (15:20)
[2025-01-10] MEDS ORDERED: HYDROcodone/acetaminophen 10/325mg tab PO PRN (15:20)
[2025-01-10] MEDS: normal saline 1000ml 1,000 ML IV SCH (15:20)
[2025-01-10] MEDS ORDERED: ondansetron 4mg rapidly disintigrating tab PO PRN (15:20)
[2025-01-10] MEDS ORDERED: acetaminophen 325mg tablet PO PRN ×2 (15:20)
[2025-01-10] MEDS ORDERED: ondansetron/PF 4mg/2ml inj IV PRN (15:20)
[2025-01-10] MEDS ORDERED: HYDROcodone/acetaminophen 5mg/325mg tablet PO PRN (15:20)
[2025-01-10] MEDS ORDERED: mag hydrox/Alum hydrox/simeth 30ml oral suspension PO PRN (15:20)
[2025-01-10] MEDS ORDERED: bisacodyl 10mg suppository rectal RC PRN (15:20)
[2025-01-10] MEDS ORDERED: morphine 2 MG/ML inj. syringe IV PRN ×2 (15:20)
[2025-01-10] MEDS ORDERED: acetaminophen 650mg rectal suppository RC PRN (15:20)
[2025-01-10] MEDS ORDERED: diphenhydrAMINE 50 mg/ml inj IV PRN (15:20)
[2025-01-10 16:07] LABS: HEMOGLOBIN A1C 5.7 % (4.5-6.2); MAGNESIUM 2.2 MG/DL (1.5-2.4); PHOSPHORUS 3.4 MG/DL (2.3-4.5); THYROID STIMULATING HORMONE 3.24 ulU/ml (0.34-4.50)
[2025-01-10 16:39] LABS: APTT 28 SECONDS (22-32); D-DIMER 0.38 MG/L FEU (0-0.50); PROTHROMBIN TIME 9.8 SECONDS (9.0-12.0)
[2025-01-10 19:00] VITALS: BP 128/79; PULSE 61; RESP 14; TEMP 96.8; O2SAT 98
[2025-01-10 20:00] VITALS: RESP 14; O2SAT 98
[2025-01-10] MEDS: docusate sod 100mg capsule PO SCH (20:00)
[2025-01-10] MEDS ORDERED: temazepam 15mg capsule PO PRN (21:00)
[2025-01-10 22:00] VITALS: BP 115/71; PULSE 65; RESP 11; TEMP 97.4; O2SAT 93
[2025-01-10 23:51] VITALS: RESP 14; O2SAT 98
[2025-01-11 02:00] VITALS: BP 126/75; PULSE 62; RESP 11; TEMP 97; O2SAT 97
[2025-01-11 03:26] LABS: BASOPHILS # (AUTO) 0.1 X10'3 (0-0.2); BASOPHILS % (AUTO) 0.9 % (0-1); EOSINOPHILS # (AUTO) 0.2 X10'3 (0-0.9); EOSINOPHILS % (AUTO) 3.3 % (0-6); HEMATOCRIT 45.4 % (42.0-52.0); HEMOGLOBIN 15.5 g/dl (14.0-17.9); LYMPHOCYTES # (AUTO) 1.5 X10'3 (1.1-4.8); LYMPHOCYTES % (AUTO) 22.9 % (21-51); MEAN CORPUSCULAR HEMOGLOBIN 33.5 PG (27.0-31.0); MEAN CORPUSCULAR HGB CONC 34.1 g/dL (33.0-36.5); MEAN PLATELET VOLUME 7.3 FL (7.4-10.4); MONOCYTES # (AUTO) 0.7 X10'3 (0-0.9); MONOCYTES % (AUTO) 10.4 % (2-12); NEUTROPHILS # (AUTO) 4.1 X10'3 (1.8-7.7); NEUTROPHILS % (AUTO) 62.5 % (42-75); PLATELET COUNT 213 X10'3 (140-440); RED BLOOD COUNT 4.63 X10'6 (4.70-6.10); WHITE BLOOD COUNT 6.5 X10'3 (4.5-11.0)
[2025-01-11] MEDS: diphenhydrAMINE 25mg capsule PO PRN (03:29)
[2025-01-11 03:48] LABS: ALANINE AMINOTRANSFERASE 27 U/L (12-78); ALBUMIN 3.6 G/DL (3.4-5.0); ALBUMIN/GLOBULIN RATIO 1.1 (1.1-1.5); ALKALINE PHOSPHATASE 78 IU/L (46-116); ANION GAP 6 (8-16); ASPARTATE AMINO TRANSFERASE 22 U/L (10-37); BILIRUBIN,TOTAL 0.6 MG/DL (0.1-1.0); BLOOD UREA NITROGEN 16 MG/DL (7-18); CALCIUM 8.9 MG/DL (8.5-10.1); CHLORIDE 106 MMOL/L (99-107); CHOL/HDL RATIO 2.3 (0.00-4.99); CHOLESTEROL 144 MG/DL (0-200); CREATININE 1.07 MG/DL (0.60-1.10); GLUCOSE 95 MG/DL (70-104); HDL CHOLESTEROL 64 MG/DL (35-60); LDL CHOLESTEROL 58 MG/DL (50-100); POTASSIUM 4.3 MMOL/L (3.5-5.1); SODIUM 141 MMOL/L (135-145); TOTAL CARBON DIOXIDE 28.9 MMOL/L (24-32); TOTAL PROTEIN 6.9 G/DL (6.4-8.2); TRIGLYCERIDES 62 MG/DL (20-135); eCRCL 69 ML/MIN; eGFR 69 ML/MIN
[2025-01-11 04:06] LABS: BILIRUBIN,URINE NEGATIVE (Neg); CLARITY,URINE CLEAR (Clear); COLOR,URINE YELLOW (Yellow); GLUCOSE, URINE >=1000 mg/dl (Neg); KETONES,URINE NEGATIVE (Neg); LEUKOCYTE ESTERASE ,URINE NEGATIVE (Neg); NITRITES, URINE NEGATIVE (Neg); OCCULT BLOOD,URINE NEGATIVE (Neg); PROTEIN,URINE NEGATIVE (Neg); UA COLLECTION TYPE NON-SPECIFIED; UROBILINOGEN,URINE 0.2 E.U/dL (0.2-1.0)
[2025-01-11 04:09] LABS: BACTERIA,URINE NONE SEEN /HPF (Neg); RBC,URINE 0-2 /HPF (0-2); SQUAMOUS EPITHELIAL CELL,UR FEW /LPF (FEW); WBC,URINE 0-4 /HPF (0-4)
[2025-01-11 04:10] LABS: AMORPHOUS URATES 1+; URIC ACID CRYSTALS FEW /HPF (NEGATIVE)
[2025-01-11 08:00] VITALS: RESP 16; O2SAT 98
[2025-01-11] MEDS: pantoprazole 40mg Tablet.DR PO SCH (08:35)
[2025-01-11] MEDS ORDERED: nitroGLYCERIN 0.4mg SUBLingual tab SL PRN (14:00)
[2025-01-11] MEDS ORDERED: metoprolol tartrate 1mg/ml inj IV PRN (14:00)
[2025-01-11] MEDS ORDERED: regadenoson 0.4mg/5ml syringe IV PRN (14:00)
[2025-01-11] MEDS ORDERED: aminophylline 500mg/20ml vial IV PRN (14:00)
--- NOTE | 2025-01-11 16:17 | PROGRESS NOTE ---
Daily Progress Note Providers to CC ~ no new complaint today resting comfortably in the bed Central Line/PICC still needed: No Cruz-Non Protocol Cruz Indications Met/Not Met: F/C Indications Not Met Antibiotic Timeout Antibiotic Ordered?: No MRSA Education MRSA Education Provided to pt: No Subjective As above Objective Vital Signs Date Time Temp Pulse Resp B/P (MAP) Pulse Ox O2 Delivery O2 Flow Rate FiO2 01/11/25 08:00 16 98 Room Air 0.0 01/11/25 06:30 56 01/11/25 02:00 97.0 126/75 (92) Vital signs, stable ,afebrile. Pulse Oximetry reflects adequate oxygenation. General: well developed, well nourished. Awake , alert, and oriented x4, resting comfortably in the bed, in no acute distress . Skin: Warm, dry, no pallor, no rash or petechiae. HEENT: Atraumatic, normocephalic, EOMI, anicteric sclera B; pink conjunctiva; PERRLA, normal oropharynx, moist oral and nasal mucosa. Tympanic membrane , nose , throat clear. Neck: Trachea midline. Supple, full range of motion, no JVD, bruit , hepatojugular reflex , lymphadenopathy or masses, or other lesions Cardiac: Regular rhythm, regular rate no murmurs, rubs, or gallops. Normal S1 and S2, no S3 noticed. PMI is normal. Respiratory: Equal breath sounds bilaterally, no tachypnea; lungs clear to auscultation bilaterally, no wheezing ,rub or rales, or crackles. Chest wall is symmetric and without deformity. No signs of trauma. Chest wall is nontender. No signs of respiratory distress. Resonance is normal upon percussion bilaterally. Gastrointestinal: Abdomen symmetric, non-distended, soft, non-tender, normal bowel sounds x4 quadrant, normoactive, no hepatosplenomegaly , no masses , no bruit, no flank pain bilaterally. No voluntary guarding, rebound, or rigidity. No tenderness to percussion. No pulsatile masses. Equal femoral pulses. No Moyer's sign or McBurney point tenderness. Back; no CVA tenderness bilaterally, no deformities. Neck and back are without deformity as well. No tenderness noted on palpation of the spinous processes. Spinous processes are midline. Cervical, thoracic, and lumbar paraspinal muscles are not tender and are without spasm. : normal external genitalia, without lesions, swelling, masses or tenderness. Musculoskeletal: Extremities, normal range of motion, non-tender, muscle strength 5/5 x 4. Negative Homans signs bilaterally on lower extremity. Distal pulses full symmetrical, no clubbing, cyanosis , edema. Neurological: Speech is clear, alert, and oriented x 4. No motor or sensory deficit, deep tendon reflexes normal, cerebellar intact. Cranial nerves II-XII intact. Psych: Alert and or appropriate, normal affect. Vascular: Good distal pulses, which are equal x4; capillary refill less than 2 seconds. Lymphatic, no lymphadenopathy. Result Diagram: 01/11/2531401/11/25314 Coagulation Studies Laboratory Tests Test 01/10/25 15:50 Prothrombin Time 9.8 SECONDS (9.0-12.0) INR International Normalized Ratio 1.0 INR Activated Partial Thromboplast Time 28 SECONDS (22-32) D-Dimer 0.38 MG/L FEU (0-0.50) D-Dimer Comment Coagulation Comments Problem\Assessment\Plan Assessment Chest pain precordial Non ST-elevation [place] Hypertension poor control Atrial fibrillation controlled ventricular rate, pacemaker status History of CABG x4 vessels CHF mild exacerbation preserved ejection fraction 55% 2022 Chronic pain syndrome on home opioids Additional comorbidities, dyslipidemia, PVD carotids, history of CVA Plan Serial troponin EKG Continue aspirin Plavix, no heparin infusion per drupal programmer Dr. Arizmendi, who is on-call today Additional lab work pending Patient drupal programmer is Dr. Feliz Echocardiography pending We will consider Jaida test Jaida Test pending Reconciled home medications DVT gastropathy prophylaxis addressed Sepsis Screening Reassessment Date: Jan 11, 2025 Date of Service: Jan 11, 2025 Billing Provider: JONATHAN PLATT MD Common Visit Codes: [id number] INP/OBS CARE(HIGH) JONATHAN PLATT MD Jan 11, 2025 16:17
[2025-01-11 18:00] VITALS: BP 118/82; PULSE 70; RESP 16; TEMP 97.8; O2SAT 100
--- NOTE | 2025-01-11 18:19 | CARDIOLOGY REPORT ---
APPROVED REPORT EXAM: Comprehensive 2D, Doppler, and color-flow Echocardiogram with saline Patient Location: 0078V Blood Pressure: 126/75 mmHg Heart Rate: 76 bpm Rhythm: Pacemaker Indications Dizziness/Lightheaded Chest Pain Myocardial Infarction Congestive Heart Failure Troponin: 220, 271 ProBNP: 379 Coronary Artery Disease CABG x 4 AICD Hypertension PROJECTION WELDING MACHINE OPERATOR: Nathanael Feliz MD Previous ECHO: 03/03/23, [facility], EF: 55 2D Dimensions LA Diam3.0 cm IVSd 0.9 (0.7-1.1cm) LVDd 4.3 cm PWd 1.0 (0.7-1.1cm) IVSs 1.1 (0.8-1.2cm) LVDs 3.2 (2.5-4.0cm) PWs 1.2 (0.8-1.2cm) LVOT Diameter 2.10 (1.8-2.4cm) LVEF(%) 48.3 (>50%) Ao Asc Diam.3.04 cm IVC 16.35 mmFS (%) 24.1 % SV 39.0 ml CO 2.8 L/min M-Mode Dimensions Left Atrium(MM) 3.35 (2.5-4.0cm) Aortic Root 3.52 (2.2-3.7cm) Aortic Cusp Exc 1.96 (1.5-2.0cm) MV EPSS 0.8 (<0.5cm) Aortic Valve AoV Peak Zaki. 108.2 cm/s AoV VTI 19.9 cm AO Peak GR. 4.7 mmHg AO Mean GR. 2 mmHg LVOT VTI 17.38 cm LVOT Peak Zaki. 93.9 cm/s CK(VTI)/BSA 3.03 cm2/m2 CK (VTI) 3.03 cm2 Mitral Valve MV E Velocity 70.0 cm/s MV Peak Gr. 2 mmHg MV DECEL TIME 196 ms MV A Velocity 87.3 cm/s MV PHT 56 ms E/A Ratio 0.8 MVA (PHT) 3.93 cm2 MV VMax77.1 cm/s TDI Lateral E' P. V6.83 cm/s E/Lateral E' 10.2 Pulmonary Valve PAEDP11.99 mmHg Tricuspid Valve TR P. Velocity 278 cm/s RAP ESTIMATE 10 mmHg TR Peak Gr. 31 mmHg RVSP 41 mmHg LEFT VENTRICLE Normal LV size and wall thickness. Overall systolic function is low normal. LVEF is 50%. ATRIA The left atrium size is normal. Pacemaker lead is present in the right heart. Saline study was perfor med with 2 IV injections of 10 ccs of agitated normal saline at rest, with cough, and with valsalva. Negative saline study for right to left flow. AORTIC VALVE Trileaflet AV appears mildly sclerotic without stenosis. No insufficiency. MITRAL VALVE Mild mitral annular calcification without stenosis. race regurgitation. TRICUSPID VALVE The tricuspid valve is normal in structure with mild to moderate regurgitation. PULMONIC VALVE The pulmonary valve is normal in structure with physiologic insufficiency. GREAT VESSELS The aortic root is normal in size. The ascending aorta is normal in size. The IVC is normal in size a nd collapses >50% with inspiration. PERICARDIUM Normal pericardium. No effusion. Other Information Study Quality: Adequate Conclusion Normal LV size and wall thickness. Overall systolic function is low normal. LVEF is 50%. The left atrium size is normal. Pacemaker lead is present in the right heart. Saline study was performed with 2 IV injections of 10 ccs of agitated normal saline at rest, with cou gh, and with valsalva. Negative saline study for right to left flow. Trileaflet AV appears mildly sclerotic without stenosis. No insufficiency. Mild mitral annular calcification without stenosis. race regurgitation. The tricuspid valve is normal in structure with mild to moderate regurgitation. Normal pericardium. No effusion.
[2025-01-11 20:00] VITALS: RESP 14; O2SAT 98
[2025-01-11] MEDS: diphenhydrAMINE 2%/zinc acetate cream TP SCH (20:50)
[2025-01-11 22:00] VITALS: BP 136/65; PULSE 80; RESP 17; TEMP 97.6
[2025-01-11] MEDS ORDERED: EZET10TA48 PO (23:13)
[2025-01-12] MEDS ORDERED: HYDROcodone/acetaminophen 10/325mg tab PO PRN (01:15)
[2025-01-12 02:00] VITALS: BP 119/78; PULSE 75; RESP 15; TEMP 97; O2SAT 95
[2025-01-12 06:08] LABS: BASOPHILS % (AUTO) 0.7 % (0-1); EOSINOPHILS # (AUTO) 0.3 X10'3 (0-0.9); HEMATOCRIT 46.3 % (42.0-52.0); HEMOGLOBIN 15.8 g/dl (14.0-17.9); LYMPHOCYTES # (AUTO) 1.4 X10'3 (1.1-4.8); LYMPHOCYTES % (AUTO) 26.2 % (21-51); MEAN CORPUSCULAR HEMOGLOBIN 33.5 PG (27.0-31.0); MEAN CORPUSCULAR HGB CONC 34.2 g/dL (33.0-36.5); MEAN PLATELET VOLUME 7.8 FL (7.4-10.4); MONOCYTES # (AUTO) 0.6 X10'3 (0-0.9); MONOCYTES % (AUTO) 10.2 % (2-12); NEUTROPHILS # (AUTO) 3.1 X10'3 (1.8-7.7); NEUTROPHILS % (AUTO) 56.9 % (42-75); PLATELET COUNT 234 X10'3 (140-440); RED BLOOD COUNT 4.72 X10'6 (4.70-6.10); RED CELL DISTRIBUTION WIDTH 13.9 % (11.5-14.5); WHITE BLOOD COUNT 5.4 X10'3 (4.5-11.0)
[2025-01-12 06:28] LABS: ALANINE AMINOTRANSFERASE 23 U/L (12-78); ALBUMIN 3.8 G/DL (3.4-5.0); ALBUMIN/GLOBULIN RATIO 1.2 (1.1-1.5); ALKALINE PHOSPHATASE 79 IU/L (46-116); ANION GAP 8 (8-16); ASPARTATE AMINO TRANSFERASE 25 U/L (10-37); BILIRUBIN,TOTAL 0.6 MG/DL (0.1-1.0); BLOOD UREA NITROGEN 15 MG/DL (7-18); BUN/CREATININE RATIO 12.7 (10.0-20.0); CALCIUM 9.1 MG/DL (8.5-10.1); CHLORIDE 107 MMOL/L (99-107); CREATININE 1.18 MG/DL (0.60-1.10); GLUCOSE 115 MG/DL (70-104); POTASSIUM 4.5 MMOL/L (3.5-5.1); SODIUM 142 MMOL/L (135-145); TOTAL CARBON DIOXIDE 26.6 MMOL/L (24-32); TOTAL PROTEIN 7.1 G/DL (6.4-8.2); eCRCL 63 ML/MIN; eGFR 62 ML/MIN
[2025-01-12] MEDS: EMPAGLIFLOZIN 10 MG TABLET PO SCH (07:50)
[2025-01-12] MEDS: aspirin 81mg, enteric-coated 1 TAB TABLET.DR PO SCH (07:50)
[2025-01-12] MEDS: ezetimibe 10mg tablet PO SCH (07:51)
[2025-01-12] MEDS: clopidogrel 75mg tablet PO SCH (07:51)
[2025-01-12] MEDS: atorvastatin 20mg tablet PO SCH (07:52)
[2025-01-12 08:00] VITALS: RESP 14; O2SAT 98
[2025-01-12] MEDS: sotalol 80mg tablet PO SCH (08:00)
[2025-01-12] MEDS ORDERED: SPIR25TA PO (12:36)
--- NOTE | 2025-01-12 16:39 | DISCHARGE SUMMARY ---
Discharge Summary Providers to No new complaint today, asking to be discharged home ~ Discharge Summary Assessment Chest pain precordial anginal Non ST-elevation CT, type 2 Hypertension poor control Atrial fibrillation controlled ventricular rate, pacemaker status History of CABG x4 vessels CHF , diastolic, mild exacerbation preserved ejection fraction Chronic pain syndrome on home opioids Additional comorbidities, dyslipidemia, PVD carotids, history of CVA Admission Diagnosis: CP Admission Diagnosis Comment: Chest pain precordial anginal Non ST-elevation CT, type 2 Hypertension poor control Atrial fibrillation controlled ventricular rate, pacemaker status History of CABG x4 vessels CHF , diastolic, mild exacerbation preserved ejection fraction Chronic pain syndrome on home opioids Additional comorbidities, dyslipidemia, PVD carotids, history of CVA Hospital Course DATE OF ADMISSION: January 10, 2025 DATE OF DISCHARGE: January 12, 2025 Discharge Diagnosis\Comment: Chest pain precordial anginal Non ST-elevation CT, type 2 Hypertension poor control Atrial fibrillation controlled ventricular rate, pacemaker status History of CABG x4 vessels CHF , diastolic, mild exacerbation preserved ejection fraction Chronic pain syndrome on home opioids Additional comorbidities, dyslipidemia, PVD carotids, history of CVA Operations\Procedures: Non Consultants: Director Of Social Work Complications: None Condition on DC: Stable Discharge Summary: This is a 59-YEAR-OLD MALE, with history of multiple medical problems including hypertension, status post CABG x4 vessels, pacemaker status, history of atrial fibrillation, history of CVA, ex-smoker quit three years ago, history of PVD carotids, dyslipidemia, on Eliquis at home, history of CHF ejection fraction 55% 2022, in mild exacerbation, chronic pain syndrome on home opioids, presented today to emergency department chief complaint chest pain; in addition patient PRESENTS TO THE ED WITH A COMPLAINT OF HIS HEART WORKING TOO HARD. HE HAS A HISTORY OF BYPASS PROXIMALLY THREE YEARS AGO. HE HAS NOTICED INCREASED SHORTNESS OF BREATH OVER THE LAST WEEK. WITH ANY CHEST PAIN NAUSEA VOMITING OR DIAPHORESIS, in addition patient has history of bypass/ICD, who presents with an abnormal feeling in his heart. He tells me that for the past couple of days he has felt like he is having some irregular heartbeats. He states that it is intermittent, and seems worse when he is out in the heat. 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 It has been extremely hot this week. He states that it is not pain, but is more like an abnormal heartbeat or several abnormal beats. Yesterday while he was working in the heat he also felt like his left hand was cramping and he felt slightly dizzy.He denies any specific chest pressure. No syncope. No current dizziness. No abdominal pain, nausea/vomiting. No other acute concerns. He is currently asymptomatic. Emergency department he was evaluated by physician and after consultation with network project manager, decision was made to admit patient for further evaluation and treatment. No additional complaint or concern. After admission patient was extensively evaluated and treated echocardiography done, Jaida test was not done since patient had laxatives one month ago. Today patient is feeling fine no chest pain asking to be discharged home, he will be discharged in stable condition, medication reconciled, follow-up PCP Cardiology in the morning, return to emergency department if condition worsens, today on physical exam, Vital signs, stable ,afebrile. Pulse Oximetry reflects adequate oxygenation. General: well developed, well nourished. Awake , alert, and oriented x4, resting comfortably in the bed, in no acute distress . Skin: Warm, dry, no pallor, no rash or petechiae. HEENT: Atraumatic, normocephalic, EOMI, anicteric sclera B; pink conjunctiva; PERRLA, normal oropharynx, moist oral and nasal mucosa. Tympanic membrane , nose , throat clear. Neck: Trachea midline. Supple, full range of motion, no JVD, bruit , hepatojugular reflex , lymphadenopathy or masses, or other lesions Cardiac: Regular rhythm, regular rate no murmurs, rubs, or gallops. Normal S1 and S2, no S3 noticed. PMI is normal. Respiratory: Equal breath sounds bilaterally, no tachypnea; lungs clear to auscultation bilaterally, no wheezing ,rub or rales, or crackles. Chest wall is symmetric and without deformity. No signs of trauma. Chest wall is nontender. No signs of respiratory distress. Resonance is normal upon percussion bilaterally. Gastrointestinal: Abdomen symmetric, non-distended, soft, non-tender, normal bowel sounds x4 quadrant, normoactive, no hepatosplenomegaly , no masses , no bruit, no flank pain bilaterally. No voluntary guarding, rebound, or rigidity. No tenderness to percussion. No pulsatile masses. Equal femoral pulses. No Moyer's sign or McBurney point tenderness. Back; no CVA tenderness bilaterally, no deformities. Neck and back are without deformity as well. No tenderness noted on palpation of the spinous processes. Spinous processes are midline. Cervical, thoracic, and lumbar paraspinal muscles are not tender and are without spasm. : normal external genitalia, without lesions, swelling, masses or tenderness. Musculoskeletal: Extremities, normal range of motion, non-tender, muscle strength 5/5 x 4. Negative Homans signs bilaterally on lower extremity. Distal pulses full symmetrical, no clubbing, cyanosis , edema. Neurological: Speech is clear, alert, and oriented x 4. No motor or sensory deficit, deep tendon reflexes normal, cerebellar intact. Cranial nerves II-XII intact. Psych: Alert and or appropriate, normal affect. Vascular: Good distal pulses, which are equal x4; capillary refill less than 2 seconds. Lymphatic, no lymphadenopathy. *Problems/Diagnosis: (1) Coronary artery disease (2) A-fib Status: Resolved (3) Chest pain Status: Acute (4) CHF exacerbation Status: Acute Total Time Spent on D/C: > 30 Minutes Date of Service: Jan 12, 2025 Billing Provider: JONATHAN PLATT MD Common Visit Codes: 83998-ASY/OBS DISCH DAY >30min JONATHAN PLATT MD Jan 12, 2025 16:39
== END 2025-01-12 15:39 | disposition home or self-care (01) | DRG 280 ==
LOC: ER 10:01 → ED HOLD 15:25 → PCU 3S 17:51
PROVIDERS: ADMIT Family Medicine; ATTEND Family Medicine
DX: I25.119 Atherosclerotic heart disease of native coronary artery with unspecified angina pectoris (principal); I50.33 Acute on chronic diastolic (congestive) heart failure; I21.A1 Myocardial infarction type 2; I11.0 Hypertensive heart disease with heart failure; E78.5 Hyperlipidemia, unspecified; I48.91 Unspecified atrial fibrillation; G89.4 Chronic pain syndrome; F41.9 Anxiety disorder, unspecified; I73.9 Peripheral vascular disease, unspecified; Z95.1 Presence of aortocoronary bypass graft; Z79.82 Long term (current) use of aspirin; Z79.01 Long term (current) use of anticoagulants; Z79.899 Other long term (current) drug therapy; Z88.2 Allergy status to sulfonamides; Z86.73 Personal history of transient ischemic attack (TIA), and cerebral infarction without residual deficits; Z95.0 Presence of cardiac pacemaker; Z87.891 Personal history of nicotine dependence
CPT/HCPCS: 36415; 71045; 80048; 80053; 80061; 81001; 83036; 83735; 83880; 84100; 84443; 84484; 85025; 85379; 85610; 85730; 87081; 93005; 93306; 99285; A6250; G0378; J7030; Q0163

== ENCOUNTER 2025-01-14 23:49 | Emergency (ER) | payer MEDICARE, MEDICAID ==
[~2025-01-14] VITALS: Ht 177.8 cm; Wt 87.7 kg
[~2025-01-14 23:49] MED LIST changes: +EZET10TA48 PO; -HYDR-3972 PO; +SPIR25TA PO
[2025-01-14 23:53] VITALS: RESP 18
--- NOTE | 2025-01-15 02:42 | ELECTROCARDIOGRAPH REPORT ---
[facility] Test Date: 2025-01-15 Test Time: 02:40:15 Pat Name: JULIA PEREZ Department: [facility]-ER Patient ID: [facility]-[id number] Room: Gender: M Medical Coding Instructor: : 1955 Requested By: RAMBO JOHN Order Number: [id number] Reading MD: Measurements Intervals [place] Rate: 60 P: 42 RI: 205 QRS: 72 QRSD: 145 T: 132 QT: 424 QTc: 424 Interpretive Statements Sinus rhythm Probable left atrial enlargement Right bundle branch block Probable anterolateral infarct, age indeterm Abnormal T, consider ischemia, lateral leads Please click the below link to view image of tracing.
--- NOTE | 2025-01-15 02:59 | RADIOLOGY REPORT ---
CHEST RADIOGRAPH Indication: CP Technique: Single frontal view of the chest was obtained COMPARISON: DI CHEST,SINGLE VIEW on DOS: 01/10/25, DI CHEST,SINGLE VIEW on DOS: 09/09/24, DI CHEST,SING LE VIEW on DOS: 04/28/23, DI CHEST,SINGLE VIEW on DOS: 04/22/23 FINDINGS: Lines and Tubes: None. Left anterior chest wall dual lead cardiac pacing device. Lungs: Clear Pleura: No effusion. No pneumothorax. Cardiomediastinal contours: Unremarkable status post median sternotomy. Bones: Unremarkable IMPRESSION: 1. No acute disease.
[2025-01-15 03:04] LABS: BASOPHILS # (AUTO) 0.1 X10'3 (0-0.2); BASOPHILS % (AUTO) 0.9 % (0-1); EOSINOPHILS # (AUTO) 0.4 X10'3 (0-0.9); EOSINOPHILS % (AUTO) 6.3 % (0-6); HEMATOCRIT 46.8 % (42.0-52.0); HEMOGLOBIN 15.7 g/dl (14.0-17.9); LYMPHOCYTES # (AUTO) 1.2 X10'3 (1.1-4.8); LYMPHOCYTES % (AUTO) 18.9 % (21-51); MEAN CORPUSCULAR HEMOGLOBIN 32.6 PG (27.0-31.0); MEAN CORPUSCULAR HGB CONC 33.5 g/dL (33.0-36.5); MEAN CORPUSCULAR VOLUME 97.4 FL (78-98); MEAN PLATELET VOLUME 7.8 FL (7.4-10.4); MONOCYTES # (AUTO) 0.5 X10'3 (0-0.9); NEUTROPHILS # (AUTO) 4.1 X10'3 (1.8-7.7); NEUTROPHILS % (AUTO) 65.9 % (42-75); PLATELET COUNT 248 X10'3 (140-440); RED BLOOD COUNT 4.81 X10'6 (4.70-6.10); RED CELL DISTRIBUTION WIDTH 13.5 % (11.5-14.5); WHITE BLOOD COUNT 6.2 X10'3 (4.5-11.0)
[2025-01-15 03:14] VITALS: BP 137/83; PULSE 59; O2SAT 99
[2025-01-15 03:23] LABS: ALBUMIN 4.5 G/DL (3.4-5.0); ANION GAP 8 (8-16); BLOOD UREA NITROGEN 18 MG/DL (7-18); BUN/CREATININE RATIO 16.1 (10.0-20.0); CALCIUM 9.2 MG/DL (8.5-10.1); CHLORIDE 103 MMOL/L (99-107); CREATININE 1.12 MG/DL (0.60-1.10); GLUCOSE 117 MG/DL (70-104); POTASSIUM 4.3 MMOL/L (3.5-5.1); SODIUM 136 MMOL/L (135-145); TOTAL CARBON DIOXIDE 24.7 MMOL/L (24-32); eCRCL 66 ML/MIN; eGFR 65 ML/MIN
--- NOTE | 2025-01-15 04:21 | Physician Documentation ---
History of Present Illness ~ Chief Complaint: Shortness of Breath Stated Complaint: SHORT OF BREATH Time Seen by MD: 03:47 Primary Medical Doctor: Dr. Stephy Feliz Mode of Arrival: EMS HPI Patient presents to the emergency room for evaluation of shortness of breath that woke him up out of sleep. Patient has had episodes similar to this previously. He was seen here last week fruit chest pain and shortness of breath. Police see prior notes for details. He is admitted with echocardiogram and monitored. Patient was found to have negative workup. 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 Patient states that has symptoms resolved upon EMS arrival. He does have a defibrillator. Currently the patient feels like himself Medication Reconciliation Allergies: Coded Allergies: Sulfa (Sulfonamide Antibiotics) (Unverified Allergy, Unknown, 01/15/25) Scheduled Aspirin (Aspir 81), 1 TAB PO DAILY, (Reported) Atorvastatin Calcium (Atorvastatin Calcium), 40 MG PO DAILY Clopidogrel Bisulfate (Clopidogrel), 75 MG PO DAILY Empagliflozin (Jardiance), 1 TAB PO DAILY, (Reported) Ezetimibe (Ezetimibe), 1 TAB PO DAILY, (Reported) Sotalol Hcl* (Betapace*), 80 MG PO Q12H Spironolactone (Aldactone), 1 TAB PO DAILY Scheduled PRN Sildenafil Citrate (Sildenafil Citrate), 1 TAB PO DAILY PRN for sexual activity, (Reported) Discontinued Medications Hydrocodone Bit/Acetaminophen (Hydrocodon-Acetaminophn 10-325 tablet), 1 TAB PO Q4H PRN for MODERATE PAIN 4-6 Past Medical History Past Medical History: Arrhythmia, Congestive Heart Failure, Hypertension, Anxiety Past Surgical History: pacemaker, other Alcohol Use: Occasionally Drug Use: none Lives In: Home Review of Systems ROS All review of systems negative except as per HPI Physical Exam Vital Signs: Temperature: 97.5, Source: Oral, Heart Rate: 59, Respiratory Rate: 18, BP: 137/83, Pulse Oximetry: 99, Weight: 87.650 Oxygen Flow Rate: 0 Physical Exam General: Patient is awake, alert, oriented x4 in no acute distress Head: Normocephalic and atraumatic. Eyes: Conjunctival normal. EOMI. PERRL. ENT: Mucous membranes moist. Neck: Supple, trachea is midline. Chest: Clear to auscultation bilaterally without rales, rhonchi, or wheezes. There is no accessory muscle use or retractions. Cardiac: RRR without murmurs, gallops, or rubs. Abd: Soft, nondistended, nontender, with normoactive bowel sounds. No guarding, rebound, or rigidity. Extremities: Normal strength. Normal range of motion. No deformities or edema. Progress Results/Orders Results/Orders Orders - RAMBO WILCOX MD Chest,Single View (01/15/25 02:48) Monitor (01/15/25 02:24) Saline Lock (01/15/25 02:24) Oxygen (01/15/25 02:24) Hs Troponin I W Calculations (01/15/25 05:24) Completed Orders - RAMBO WILCOX MD Chest,Single View (01/15/25 02:48) Cbc/Diff (01/15/25 02:24) BMP (01/15/25 02:24) Electrocardiogram (01/15/25 02:24) Hs Troponin I W Calculations (01/15/25 02:24) Hs Troponin I W Calculations (01/15/25 04:24) Vital Signs 01/14/25 01/15/25 01/15/25 23:53 02:19 03:14 Temp 97.5 97.5 Pulse 71 59 Resp 18 B/P (MAP) 136/90 137/83 (101) Pulse Ox 96 99 O2 Flow Rate 0 0 Laboratory Tests Test 01/15/25 02:38 01/15/25 05:05 White Blood Count 6.2 Red Blood Count 4.81 Hemoglobin 15.7 Hematocrit 46.8 Mean Corpuscular Volume 97.4 Mean Corpuscular Hemoglobin 32.6 H Mean Corpuscular Hemoglobin Concent 33.5 Red Cell Distribution Width 13.5 Platelet Count 248 Mean Platelet Volume 7.8 Neutrophils (%) (Auto) 65.9 Lymphocytes (%) (Auto) 18.9 L Monocytes (%) (Auto) 8.0 Eosinophils (%) (Auto) 6.3 H Basophils (%) (Auto) 0.9 Neutrophils # (Auto) 4.1 Lymphocytes # (Auto) 1.2 Monocytes # (Auto) 0.5 Eosinophils # (Auto) 0.4 Basophils # (Auto) 0.1 CBC Comment Sodium Level 136 Potassium Level 4.3 Chloride Level 103 Carbon Dioxide Level 24.7 Anion Gap 8 Blood Urea Nitrogen 18 Creatinine 1.12 H Estimated GFR/1.73 m2 65 BUN/Creatinine Ratio 16.1 Glucose Level 117 H Calcium Level 9.2 Troponin I High Sensitivity 20 17 Troponin I High Sens Percent Delta 0 15 Troponin I Hi Sens Absolute Change 0 -3 Albumin 4.5 Chemistry Comments EKG/XRAY/CT/US/VASC/MRI EKG : Additional Comment EKG interpreted by myself shows time of 0240, rate 60, sinus rhythm, normal axis, no ST changes, T-wave inversion in lateral leads Chest X-Ray : Additional Comments Exam: CHEST,SINGLE VIEW CHEST RADIOGRAPH Indication: CP Technique: Single frontal view of the chest was obtained COMPARISON: DI CHEST,SINGLE VIEW on DOS: 01/10/25, DI CHEST,SINGLE VIEW on DOS: 09/09/24, DI CHEST,SINGLE VIEW on DOS: 04/28/23, DI CHEST,SINGLE VIEW on DOS: 04/22/23 FINDINGS: Lines and Tubes: None. Left anterior chest wall dual lead cardiac pacing device. Lungs: Clear Pleura: No effusion. No pneumothorax. Cardiomediastinal contours: Unremarkable status post median sternotomy. Bones: Unremarkable IMPRESSION: 1. No acute disease. Medical Decision Making Findings Patient presented to the emergency room with subjective shortness of breath as per HPI. Differentials include but are not limited to pneumonia, cardiac arrhythmia, panic attack, CHF therefore emergent labs and imaging indicated. Labs reassuring for troponins negative x2. EKGs reassuring. Patient's symptoms completely resolved by the time ambulance had arrived. Possible panic attack. Chest x-ray clear. ER precautions discussed Departure Disposition: 01 HOME / SELF CARE / HOMELESS Impression: Primary Impression: Difficulty breathing Condition: Improved Discharge Instructions: Shortness of Breath, Adult, [id number] Referrals: NO PRIMARY CARE PROVIDER (PCP) Education Educated: Patient Signature Scribe Signature: No scribe Attestation: The note accurately reflects work and decisions made by me.Rambo Wilcox MD 01/15/25 06:02 RAMBO WILCOX MD Jan 15, 2025 04:21
[2025-01-15 06:16] VITALS: TEMP 97.5
== END 2025-01-15 06:17 | disposition home or self-care (01) ==
LOC: ER 23:49
DX: R06.02 Shortness of breath (principal); I11.0 Hypertensive heart disease with heart failure; I50.9 Heart failure, unspecified; Z88.2 Allergy status to sulfonamides; Z79.82 Long term (current) use of aspirin
CPT/HCPCS: 36415; 71045; 80048; 84484; 85025; 93005; 99285

== ENCOUNTER 2025-03-14 12:00 | Emergency (ER) | payer MEDICARE, MEDICAID ==
[~2025-03-14] VITALS: Ht 177.8 cm; Wt 84.5 kg
[2025-03-14 12:03] VITALS: BP 126/67; PULSE 100; RESP 13; O2SAT 96
--- NOTE | 2025-03-14 13:30 | Physician Documentation ---
History of Present Illness ~ Chief Complaint: Flu Symptoms Stated Complaint: COVID Time Seen by MD: 13:17 Primary Medical Doctor: Dr. Stephy Feliz HPI 69 year old male presents to the ED requesting Paxlovid secondary to testing positive for COVID today. He states that he does not present severely ill but he is trying to present prevent getting worse by taking the Paxlovid Dosepak denies any shortness of breath reports cough and general malaise. States he is otherwise healthy.denies any history of COPD Day of Onset: Mar 14, 2025 Medication Reconciliation Allergies: Coded Allergies: Sulfa (Sulfonamide Antibiotics) (Unverified Allergy, Unknown, 03/14/25) Scheduled Aspirin (Aspir 81), 1 TAB PO DAILY, (Reported) Atorvastatin Calcium (Atorvastatin Calcium), 40 MG PO DAILY Clopidogrel Bisulfate (Clopidogrel), 75 MG PO DAILY Empagliflozin (Jardiance), 1 TAB PO DAILY, (Reported) Ezetimibe (Ezetimibe), 1 TAB PO DAILY, (Reported) Nirmatrelvir/Ritonavir (Paxlovid 150-100 mg (Moderate)), 1 CAP PO BID Sotalol Hcl* (Betapace*), 80 MG PO Q12H Spironolactone (Aldactone), 1 TAB PO DAILY Scheduled PRN Sildenafil Citrate (Sildenafil Citrate), 1 TAB PO DAILY PRN for sexual activity, (Reported) Past Medical History Past Medical History: Arrhythmia, Congestive Heart Failure, Hypertension, Anxiety Past Surgical History: pacemaker, other Alcohol Use: Occasionally Drug Use: none Lives In: Home Review of Systems All Other Systems at this time: Reviewed and Negative ROS As stated above in the HPI, otherwise all systems are reviewed and negative. Physical Exam Vital Signs: Temperature: 98.8, Source: Oral, Heart Rate: 100, Respiratory Rate: 13, BP: 126/67, Pulse Oximetry: 96, Weight: 84.500 Oxygen Flow Rate: 0 Physical Exam General: Alert, no apparent distress. Respiratory: Lungs clear, no respiratory distress. Chest: No accessory muscle use. Neurologic: Oriented x4. Psychiatric: Normal mood and affect. Skin: Normal color, warm and dry. No edema, no ecchymosis. Progress Results/Orders Results/Orders Vital Signs 03/14/25 03/14/25 12:03 14:03 Temp 98.8 98.8 Pulse 100 Resp 13 B/P (MAP) 126/67 Pulse Ox 96 O2 Flow Rate 0 Medical Decision Making Findings Patient did not present in any acute distress. Based on him having early symptoms of COVID feel it is prudent to prescribe him Paxlovid as he requested. Going to discharge him for outpatient therapy at this time Did offer hospital admission, patient declined Differential Dx:Considerations: Include: CVA, Dehydration, Drug toxicity, Electrolyte imbalance, Influenza, Meningitis, Mycardial infarction, Pneumonia, Pneumonitis, Pulmonary embolus, Pyelonephritis, Respiratory failure, Sepsis, UTI, Viral Syndrome, Other Departure Disposition: HOME / SELF CARE / HOMELESS Impression: Primary Impression: Viral infection Additional Impression: COVID-19 Condition: Stable Referrals: NO PRIMARY CARE PROVIDER (PCP) Prescriptions Nirmatrelvir/Ritonavir (Paxlovid 150-100 mg (Moderate)) 150 Mg (10)-100 Mg (10) Tab.ds.pk 1 CAP PO BID for 5 Days, #10 DOSPAK Prov: MICHAEL ANDRADE [employer]TER 03/14/25 Signature Scribe Signature: v Attestation: Scribed for Michael Andrade Foot Setter by Michael Andrade - DENISSE . 03/14/25 17:54 MICHAEL ANDRADE [employer] Mar 14, 2025 13:30
[2025-03-14] MEDS ORDERED: NIRM1TAB7 PO (13:32)
[2025-03-14 14:03] VITALS: TEMP 98.8
== END 2025-03-14 14:08 | disposition home or self-care (01) ==
LOC: ER 12:01
DX: U07.1 COVID-19 (principal); I11.0 Hypertensive heart disease with heart failure; I50.9 Heart failure, unspecified; F41.9 Anxiety disorder, unspecified; Z88.2 Allergy status to sulfonamides; Z95.0 Presence of cardiac pacemaker; Z79.82 Long term (current) use of aspirin; Z79.899 Other long term (current) drug therapy; Z72.89 Other problems related to lifestyle
CPT/HCPCS: 99283

== ENCOUNTER 2025-03-29 18:36 | Emergency (ER) | payer MEDICARE, MEDICAID ==
[~2025-03-29] VITALS: Ht 177.8 cm; Wt 85.8 kg
[~2025-03-29 18:36] MED LIST changes: +NIRM1TAB7 PO; -SILD100T70 PO; -SPIR25TA PO
--- NOTE | 2025-03-29 19:21 | Physician Documentation ---
History of Present Illness ~ Chief Complaint: Dizziness Stated Complaint: DIZZINESS Time Seen by MD: 19:14 OK to notify your PCP?: Yes Primary Medical Doctor: Dr. Stephy Feliz Source: patient Mode of Arrival: POV Exam Limitations: no limitations HPI Chief Complaint: sort of dizzy Caveat: Patient having a hard time describing his dizziness Independent Historians: History of Present Illness: Patient is a 69-year-old man who was admitted this last Wednesday for possible stroke and discharged Wednesday. They were told he had a negative MRI of the brain. Patient was placed on Plavix on discharge. Patient was asymptomatic when he was discharged Wednesday. Earlier today he developed this dizziness again. It is constant. Patient has a hard time describing it. When asked if he has vertigo and if he feels like he is spinning he says sort of. No alleviating or exacerbating factors. The patient is a sked if he has a headache he says sort of. Said his head feels heavy. No nausea vomiting diarrhea. No fever. No other associated symptoms. No alleviating or exacerbating factors. No difficulties with speech. No double vision, no loss of vision in either eye, no visual changes, no weakness in one arm or one leg. No difficulties with walking. Review of systems: All systems were reviewed and are negative except for what is indicated in the history of present illness. Past Medical History: HTN, HLD, CVA, TIA, CAD Past Surgical History: CABG, AICD pacemaker Social History: No tobacco use, no alcohol use, no drug use, Medications: Reviewed as documented Nursing Notes Allergies: Reviewed as documented in Nursing Notes Medication Reconciliation Allergies: Coded Allergies: Sulfa (Sulfonamide Antibiotics) (Unverified Allergy, Unknown, 03/29/25) Scheduled Aspirin (Aspir 81), 1 TAB PO DAILY, (Reported) Atorvastatin Calcium (Atorvastatin Calcium), 40 MG PO DAILY Clopidogrel Bisulfate (Clopidogrel), 75 MG PO DAILY Empagliflozin (Jardiance), 1 TAB PO DAILY, (Reported) Ezetimibe (Ezetimibe), 1 TAB PO DAILY, (Reported) Meclizine HCl (Meclizine HCl), 1 TAB PO QID Nirmatrelvir/Ritonavir (Paxlovid 150-100 mg (Moderate)), 1 CAP PO BID Sotalol Hcl* (Betapace*), 80 MG PO Q12H Discontinued Medications Sildenafil Citrate (Sildenafil Citrate), 1 TAB PO DAILY PRN for sexual activity, (Reported) Discontinued Reason: patient no longer taking Spironolactone (Aldactone), 1 TAB PO DAILY Discontinued Reason: patient no longer taking Past Medical History Past Medical History: Arrhythmia, Congestive Heart Failure, Hypertension, Anxiety Past Surgical History: pacemaker, other Alcohol Use: Occasionally Drug Use: none Lives In: Home Physical Exam Vital Signs: Heart Rate: 74, Respiratory Rate: 15, BP: 131/80, Pulse Oximetry: 98, Weight: 85.800 Progress Results/Orders Results/Orders Orders - LIBIA PERDOMO MD [place] Prov.Neuro Consult (03/29/25 19:14) Orthostatic Vs (03/29/25 21:25) Completed Orders - LIBIA PERDOMO MD Electrocardiogram (03/29/25 19:14) Cbc/Diff (03/29/25 19:14) Pt Inr (03/29/25 19:14) PTT (03/29/25 19:14) * Vital Signs Routine* [id number] (03/29/25 19:14) * Blood Glucose Assessment * ONCE (03/29/25 19:14) * Npo Until Passed Bedside Swa (03/29/25 19:14) Nursing Swallow Screen (03/29/25 19:14) Ua W/Microscopic, Cult If Ind (03/29/25 20:30) Meclizine Tablets (Antivert Tablet) (03/29/25 21:15) CMP (03/29/25 21:13) Medications Received in ER Medications (Trade) Dose Ordered Sig/[place] Route PRN Reason Start Time Stop Time Status Last Admin Dose Admin (Antivert tablet) 25 mg ONCE ONCE PO 03/29/25 21:15 03/29/25 21:16 DC 03/29/25 21:40 25 MG Vital Signs 03/29/25 03/29/25 03/29/25 03/29/25 18:59 19:20 19:53 19:53 Pulse 74 69 67 Resp 15 13 16 16 B/P (MAP) 131/80 134/82 (99) 114/65 Pulse Ox 98 97 98 03/29/25 03/29/25 20:46 22:22 Pulse 62 59 Resp 20 14 B/P (MAP) 114/69 (84) 141/83 Pulse Ox 96 98 O2 Flow Rate 0 Laboratory Tests Test 03/29/25 19:16 03/29/25 19:23 03/29/25 20:30 White Blood Count 6.7 Red Blood Count 4.48 L Hemoglobin 14.9 Hematocrit 43.8 Mean Corpuscular Volume 97.7 Mean Corpuscular Hemoglobin 33.4 H Mean Corpuscular Hemoglobin Concent 34.1 Red Cell Distribution Width 13.5 Platelet Count 283 Mean Platelet Volume 7.2 L Neutrophils (%) (Auto) 52.3 Lymphocytes (%) (Auto) 33.2 Monocytes (%) (Auto) 8.7 Eosinophils (%) (Auto) 4.4 Basophils (%) (Auto) 1.4 H Neutrophils # (Auto) 3.5 Lymphocytes # (Auto) 2.2 Monocytes # (Auto) 0.6 Eosinophils # (Auto) 0.3 Basophils # (Auto) 0.1 CBC Comment Prothrombin Time 9.8 INR International Normalized Ratio 1.0 Activated Partial Thromboplast Time 23 Coagulation Comments Sodium Level 138 Potassium Level 3.9 Chloride Level 101 Carbon Dioxide Level 26.1 Anion Gap 11 Blood Urea Nitrogen 13 Creatinine 1.21 H Estimated GFR/1.73 m2 60 BUN/Creatinine Ratio 10.7 Glucose Level 94 Calcium Level 9.1 Total Bilirubin 0.4 Aspartate Amino Transf (AST/SGOT) 34 Alanine Aminotransferase (ALT/SGPT) 33 Alkaline Phosphatase 92 Total Protein 7.8 Albumin 4.2 Globulin 3.6 Albumin/Globulin Ratio 1.2 Chemistry Comments Glucometer 122 H Urine Specimen Description Cln catch midstream Urine Color Straw Urine Clarity Clear Urine pH 6.0 Urine Specific [place] <=1.005 Urine Protein Negative Urine Glucose (UA) >=1000 H Urine Ketones Negative Urine Occult Blood Negative Urine Nitrite Negative Urine Bilirubin Negative Urine Urobilinogen 0.2 Urine Leukocyte Esterase Negative Urine RBC 0-2 Urine WBC 0-4 Urine Squamous Epithelial Cells Few Urine Bacteria None seen Urine Culture Indicated Not ind Volume Urine Centrifuged 10 ml Urine Comment Medical Decision Making Findings Differential diagnosis includes but is not limited to: Ischemic stroke, he morrhagic stroke, electrolyte abnormalities, vertigo, vestibular dysfunction, labyrinthitis, Meniere's, benign positional vertigo, orthostasis EKG independent interpretation: Performed at 7:30 p.m.. Normal sinus rhythm, heart rate 64, normal axis, Q-waves in V1 and V2, flipped T-waves in V3 through V6 Laboratory data independent interpretation: CBC: Unremarkable CMP: Unremarkable Urinalysis: UNREMARKABLE Emergency department course/medical decision-making: Patient presents with vague symptoms of dizziness that seems to be intermittent. However the patient really does not quite describe vertigo. Patient's neuro exam is normal. Head CT is not thought to be needed. Patient's symptoms are the same as they were last Wednesday when he was admitted for a suspected stroke. MRI showed numerous old infarcts but no acute infarct on MRI of the brain on March 25. Brain imaging isn't going to be repeated. Lab work is unremarkable. Patient will be treated with meclizine and referred to his primary care doctor for ENT referral. Test results, treatment plan and all of the above was discussed with the patient and his . Patient is stable for discharge. There was no evidence for a medical or surgical emergency. Consultation/communications: 9:05 p.m.: Case discussed with the neurologist. He agrees that this is likely not a stroke and is form of vertigo. Departure Time of Disposition: 21:20 Disposition: HOME / SELF CARE / HOMELESS Impression: Primary Impression: Dizziness Condition: Improved Discharge Instructions: Dizziness, Vertigo Additional Instructions: FOLLOW UP WITH YOUR PRIMARY CARE DOCTOR FOR REFERRAL TO ENT. Prescriptions Meclizine HCl (Meclizine HCl) 25 Mg Tablet 1 TAB PO QID, #40 TAB Prov: LIBIA PERDOMO MD 03/29/25 Education Educated: Patient, Family Educated regarding: diagnosis, treatment, need for follow up Signature Scribe Signature: No scribe Attestation: No scribe LIBIA PERDOMO MD Mar 29, 2025 19:21
[2025-03-29 19:25] LABS: MEAN PLATELET VOLUME 7.2 FL (7.4-10.4); RED CELL DISTRIBUTION WIDTH 13.5 % (11.5-14.5)
--- NOTE | 2025-03-29 19:33 | ELECTROCARDIOGRAPH REPORT ---
[facility] Test Date: 2025-03-29 Test Time: 19:30:43 Pat Name: JULIA PEREZ Department: EMERGENCY ROOM Room: Gender: M Online Project Manager: MECHELLE : 1955 Requested By: LIBIA PERDOMO Order Number: [id number] Reading MD: Measurements Intervals [place] Rate: 64 P: 55 KS: 210 QRS: 74 QRSD: 85 T: 168 QT: 409 QTc: 422 Interpretive Statements Sinus rhythm Anteroseptal infarct, old Abnormal T, consider ischemia, diffuse leads Please click the below link to view image of tracing.
[2025-03-29 19:38] LABS: APTT 23 SECONDS (22-32); INR 1.0 INR
[2025-03-29 20:40] LABS: LEUKOCYTE ESTERASE ,URINE NEGATIVE (Neg); NITRITES, URINE NEGATIVE (Neg); OCCULT BLOOD,URINE NEGATIVE (Neg)
[2025-03-29 20:49] LABS: UA COLLECTION TYPE CLN CATCH MIDSTREAM
[2025-03-29 20:51] LABS: SQUAMOUS EPITHELIAL CELL,UR FEW /LPF (FEW)
--- NOTE | 2025-03-29 21:00 | [facility] CONSULT REPORT ---
[facility] Procedure Note [facility] Procedure Note Consult [facility] Note # Demographics Consult Type: Acute Stroke Level 2 (4.5-24 hrs) Patient Location: Emergency Room First Name: JULIA Last Name: CHRIS Date of : 1955 Age: 69 Gender: Male Facility: [facility] Time of Initial Page (): 03/29/2025 19:44 First Contact with Site (): 03/29/2025 19:44 # HPI Chief Complaint: - dizziness History: 69M presents with dizziness. Maybe vertiginous. Intermittent and similar to what happened on Wednesday; admitted at that time with reportedly negative MRI brain. Presents now with recurrent symptoms. This is less severe than the symptoms from the weekend. # Scores Time of exam and NIHSS (): 03/29/2025 20:50 Level of Consciousness 1a: [0] = Alert; keenly responsive LOC Questions 1b: [0] = Answers both questions correctly LOC Commands 1c: [0] = Performs both tasks correctly Best Gaze 2: [0] = Normal Visual 3: [0] = No visual loss Facial Palsy 4: [0] = Normal symmetrical movements Motor Arm Left 5a: [0] = No drift Motor Arm Right 5b: [0] = No drift Motor Leg Left 6a: [0] = No drift Motor Leg Right 6b: [0] = No drift Limb Ataxia 7: [0] = Absent Sensory 8: [0] = Normal Best Language 9: [0] = No aphasia Dysarthria 10: [0] = Normal Extinction and Inattention 11: [0] = No abnormality NIHSS Total: 0 # Assessment Impression: - Vertigo # Plan Thrombolytic/Intervention: NOT IV Thrombolysis or IA Intervention candidate Thrombolytic/Intraarterial Exclusion: - IV thrombolytic and IA intervention considered but not recommended as this patient's symptoms are not clinically consistent with an assumed diagnosis of stroke Diagnostic Test: Orthostatic vital signs [place] Hallpike/Eply maneuver Medication: Meclizine as needed for symptomatic control Other: - If patient has any neurological deterioration please call me back immediately - neurology referral as outpatient outpatient vestibular rehab referral Disposition: discharge # Logistics Attestation of consult completion: The patient is located at: [facility]. Facility staff participated in the visit. I performed this telemedicine visit from my offsite office utilizing interactive 2 way audio and visual telecommunication technology at the request of the onsite emergency room provider. Consent: Verbal consent was obtained from the patient and/or family for this encounter. Total time spent in telemedicine encounter: I spent 10 minutes reviewing clinical data and/or imaging, obtaining history, examining the patient, communicating with the onsite care team, and in preparation of this report. Electronically signed at 03/29/2025 20:59 ([place] Time) by Cuate Simmons MD Neuro Consult Order placed for: Yes CUATE SIMMONS MD Mar 29, 2025 20:59
[2025-03-29] MEDS ORDERED: MECL-302 PO (21:22)
[2025-03-29 21:28] LABS: CREATININE 1.21 MG/DL (0.60-1.10); TOTAL CARBON DIOXIDE 26.1 MMOL/L (24-32); eCRCL 61 ML/MIN; eGFR 60 ML/MIN
[2025-03-29 22:22] VITALS: BP 141/83; PULSE 59; RESP 14; O2SAT 98
== END 2025-03-29 22:25 | disposition home or self-care (01) ==
LOC: ER 18:37
DX: R42 Dizziness and giddiness (principal); E78.5 Hyperlipidemia, unspecified; I11.0 Hypertensive heart disease with heart failure; I50.9 Heart failure, unspecified; I25.10 Atherosclerotic heart disease of native coronary artery without angina pectoris; I25.2 Old myocardial infarction; Z86.73 Personal history of transient ischemic attack (TIA), and cerebral infarction without residual deficits; Z88.2 Allergy status to sulfonamides; Z95.1 Presence of aortocoronary bypass graft; Z95.810 Presence of automatic (implantable) cardiac defibrillator; Z79.82 Long term (current) use of aspirin
CPT/HCPCS: 36415; 80053; 81001; 82948; 85025; 85610; 85730; 93005; 99285; J8597